=== PATIENT | female | born 1985 | race Caucasian/White ===

== ENCOUNTER 2019-11-22 10:35 | Outpatient (RCR) | payer OTHER, SELFPAY ==
[2019-11-22] MEDS: RHO(D) IMMUNE GLOBULIN 300 MCG SYRINGE IM (13:05)
== END 2020-02-20 23:59 | disposition home or self-care (01) ==
LOC: ANHLAB 10:35
PROVIDERS: PCP Nurse Practitioner Family; Visit Provider Obstetrics & Gynecology
DX: Z29.13 Encounter for prophylactic Rho(D) immune globulin (principal); O36.0990 Maternal care for other rhesus isoimmunization, unspecified trimester, not applicable or unspecified; Z3A.00 Weeks of gestation of pregnancy not specified
CPT/HCPCS: 36415; 85461; 90384; 96372; J2790

== ENCOUNTER 2020-01-06 12:00 | Emergency (ER) | payer OTHER, SELFPAY ==
[2020-01-06 12:08] VITALS: BP 151/77; PULSE 96; RESP 16; TEMP 37.3; O2SAT 99
--- NOTE | 2020-01-06 12:09 | ED.SKABFB ---
HPI - Skin/Abscess/Foreign Bdy General Chief complaint: Skin/Abscess/Foreign Body Stated complaint: possible spider bite Time Seen by Provider: 01/06/20 12:09 Source: patient and RN notes reviewed Mode of arrival: ambulatory Limitations: no limitations History of Present Illness HPI narrative: 34-year-old female who is 36 weeks , presents with concern for possible spider bite on her left torso. Reports several day history of small amount of redness and hardness that continues to get worse. Reports she had a small amount of white drainage from the area. Reports it is tender, warm. She denies fever, malaise, chills, sweats, nausea, vomiting. Patient reports no change in movement. MD complaint: abscess/boil Related Data Home Medications Medication Instructions Recorded Confirmed vit no.[id number] 800 tablet PO DAILY 01/06/20 01/06/20 [Classic ] Allergies Allergy/AdvReac Type Severity Reaction Status Date / Time hydrocortisone AdvReac Intermediate Rash Verified 01/06/20 12:13 Review of Systems Review of Systems: Narrative: CONSTITUTIONAL: Denies malaise, chills, sweats, or fever. CARDIOVASCULAR: Denies chest pain, palpitations, or edema. RESPIRATORY: Denies cough or dyspnea. GASTROINTESTINAL: Denies abdominal pain, nausea, vomiting, diarrhea SKIN: Reports red, hard, tender area on the left torso with small amount of white drainage MUSCULOSKELETAL: Denies myalgia. NEUROLOGIC: Denies headache. All systems reviewed & are unremarkable except as noted in HPI and below PMFSH Social History Social History Gender identity (if verbalized by the patient): Female Comments At time of signature, agree with nursing past medical, surgical, social and family history. There is no relevant family history pertinent to the presenting complaint Exam Narrative: Exam Narrative: GENERAL: Well-appearing, well-nourished, and in no acute distress. HEAD: Normocephalic, atraumatic. EYES: PERRLA, conjunctivae clear, and EOMI. ENT: Mucous membranes moist. Oropharynx without edema, erythema or lesions. NECK: Supple. No lymphadenopathy CHEST: Clear to auscultation. No respiratory distress. HEART: Regular rate and rhythm. SKIN: Warm, dry. Approximately 3 cm diameter area of erythema, induration with central white area, surrounded by approximately 7 cm area of mild erythema without induration. No fluctuation noted, no drainage noted NEURO: Alert and oriented x3. PSYCH: Normal mood and affect Course Course Emergency Course: Patient is aware of diagnosis, understands and agrees to treatment plan. Anticipatory guidance given. Patient agrees to follow-up as directed and is aware of reasons to seek care at the emergency department. Portions of this record may have been created with voice recognition software Vital Signs Vital signs: Vital Signs Temperature 99.2 F 01/06/20 12:08 Pulse Rate 96 01/06/20 12:08 Respiratory Rate 16 01/06/20 12:08 Blood Pressure 151/77 H 01/06/20 12:08 Pulse Oximetry 99 01/06/20 12:08 Temperature 99.2 F 01/06/20 12:08 Pulse Rate 96 01/06/20 12:08 Respiratory Rate 16 01/06/20 12:08 Blood Pressure 151/77 H 01/06/20 12:08 Pulse Oximetry 99 01/06/20 12:08 Reviewed. MDM - Skin/Abscess/Foreign Bdy MDM Narrative Medical decision making narrative: Does not appear at this time to be erythema multiforme, bullous, SJS, TEN; no evidence at this time to suggest RMSF, endocarditis or Lyme disease; patient looks well, nontoxic and is tolerating oral intake; no neurologic signs or symptoms; no headache, photophobia or neck pain; afebrile; appropriate for initial outpatient treatment; discussed the importance of follow-up, patient agrees; question, viral exanthema, contact dermatitis, allergic dermatitis, eczema, urticaria, cellulitis, insect bite, abscess. No soft palate or uvula edema, no tongue, lip edema or other mucosal involvement, no respiratory compr
== END 2020-01-06 12:29 | disposition home or self-care (01) ==
PROVIDERS: Emergency Provider Nurse Practitioner; PCP Nurse Practitioner Family
DX: O99.713 Diseases of the skin and subcutaneous tissue complicating pregnancy, third trimester (principal); Z3A.36 36 weeks gestation of pregnancy; L02.219 Cutaneous abscess of trunk, unspecified; O99.513 Diseases of the respiratory system complicating pregnancy, third trimester; J45.909 Unspecified asthma, uncomplicated; O99.891 Other specified diseases and conditions complicating pregnancy; G47.30 Sleep apnea, unspecified
CPT/HCPCS: 99213; G0463

== ENCOUNTER 2020-01-07 12:03 | Emergency (ER) | payer OTHER, SELFPAY ==
[2020-01-07 12:06] VITALS: BP 143/49; PULSE 114; RESP 14; TEMP 35.8; O2SAT 99
--- NOTE | 2020-01-07 13:50 | ED.WOUNDLAC ---
HPI - Wound/Laceration General Chief Complaint: Wound/Laceration Stated Complaint: infection on abdomen, 36 weeks Time Seen by Provider: 01/07/20 12:32 History of Present Illness HPI narrative: Patient is a 34-year-old female who presents ER with left abdominal wall wound. She reports 3 days ago she noted a little defect in the skin, 2 days ago began to feel painful, and then yesterday after being seen in urgent care and being prescribed Keflex it began to become red. She felt cold last night but also reports she is in the early phases of moving and is packed all her stuff and could not find a thermometer to tell she had a fever. She has not been feeling cold or feverish today. No drainage. She has been applying warm compresses to try to dry out any infection. Related Data Home Medications Medication Instructions Recorded Confirmed vit no.[id number] 800 tablet PO DAILY 01/06/20 01/06/20 [Classic ] Allergies Allergy/AdvReac Type Severity Reaction Status Date / Time hydrocortisone AdvReac Intermediate Rash Verified 01/07/20 12:21 Review of Systems Constitutional: Constitutional: Reports chills, Denies fever(s) and Denies weakness Gastrointestinal: Gastrointestinal: Denies abdominal pain, Denies nausea and Denies vomiting Integumentary/Breasts: Skin/Breast: Reports erythema Comments: Pain around the redness left abdominal wall PMFSH Past Medical History Medical History (Updated 01/07/20 @ 13:59 by Adi Montemayor MD) Anxiety Depression Hepatitis C Surgical History Surgical History (Updated 01/07/20 @ 13:57 by Adi Montemayor MD) No history of previous surgery Social History Social History (Updated 01/07/20 @ 13:57 by Adi Montemayor MD) Substance use type: heroin Gender identity (if verbalized by the patient): Female Exam Narrative: Exam Narrative: GENERAL: Well-appearing, well-nourished, and in no acute distress. HEAD: Normocephalic, atraumatic. ABDOMEN: Soft, nontender, gravid. EXTREMITIES: Normal range of motion. No edema. SKIN: Warm, dry, induration and redness to the left upper abdominal wall with an area of skin sloughing that may be the nidus of infection. NEURO: Alert and oriented x3. PSYCH: Normal mood and affect. Course Course Emergency Course: Incised and drained. Continue Keflex. Follow-up with OB. Vital Signs Vital signs: Vital Signs Temperature 96.5 F L 01/07/20 12:06 Pulse Rate 114 H 01/07/20 12:06 Respiratory Rate 14 01/07/20 12:06 Blood Pressure 143/49 H 01/07/20 12:06 Pulse Oximetry 99 01/07/20 12:06 Temperature 96.5 F L 01/07/20 12:06 Pulse Rate 114 H 01/07/20 12:06 Respiratory Rate 14 01/07/20 12:06 Blood Pressure 143/49 H 01/07/20 12:06 Pulse Oximetry 99 01/07/20 12:06 Procedures Abscess I/D abdomen: Date of Incision: 01/07/20 Time of Incision: 13:45 Side (if applicable): left Local Anesthetic: lidocaine 1% and with epi Amount of anesthesia used (mL): 5 Technique: incised with #11 blade Packing used?: iodoform I&D Results: Pus Discharge Plan Discharge Clinical Impression: Abscess Patient Disposition: Home, Self-Care Condition: Stable Instructions: Abscess (ED) Additional Instructions: Continue your home antibiotics. Return to the ER if you have fever over 100.4 ?F, you have increased redness or pain, or you have other concerns. Remove your packing in 2 days. Prescriptions: No Action Classic 28 mg iron- 800 mcg tablet 800 tablet PO DAILY RF: 0 cephalexin 500 mg capsule 500 mg PO QID 10 Days Qty: 40 RF: 0 Follow-up/Referrals: Kirit,Kasey Ko [employer]ATOR-[facility] [Primary Care Provider] - 1 Week
[2020-01-07 14:12] VITALS: BP 139/52; PULSE 92; RESP 14; TEMP 36.2; O2SAT 99
== END 2020-01-07 14:12 | disposition home or self-care (01) ==
PROVIDERS: Emergency Provider Emergency Medicine; PCP Nurse Practitioner Family
DX: O99.713 Diseases of the skin and subcutaneous tissue complicating pregnancy, third trimester (principal); L02.211 Cutaneous abscess of abdominal wall; Z86.19 Personal history of other infectious and parasitic diseases; Z3A.36 36 weeks gestation of pregnancy
CPT/HCPCS: 10061; 99282

== ENCOUNTER 2020-01-29 07:00 | Inpatient (IN) | payer OTHER, SELFPAY ==
[2020-01-29] VITALS (62 sets, daily range): BP systolic 98–141; BP diastolic 48–98; PULSE 65–107; RESP 16; TEMP 36.6–37.3; O2SAT 99–100; BMI 35.6
--- NOTE | 2020-01-29 06:46 | PM.IMHP ---
H&P: HPI History of Present Illness Date/Time: 01/29/20 06:46 Chief complaint: Pre admission Narrative: Heather Garcia is a 34 year old female whose last menstrual period was unknown, EDC of 02/05/2020 presents at term for induction of labor. She has a history of a shoulder dystocia with her last delivery however this baby does not appear to be is big. Review of Systems Review of Systems: All systems reviewed & are unremarkable except as noted in HPI and below PMFSH Past Medical History Medical History Anxiety Asthma Depression Hepatitis C Surgical History Surgical History Abdominal wall abscess Family History Family History Father Diabetes mellitus Hypertension Sleep apnea Other Diabetes mellitus Cancer Cerebrovascular accident Hypertension Social History Social History Smoking status: Former smoker Substance use: never Substance use type: heroin Living arrangements: with family Occupation/Education: unemployed Gender identity (if verbalized by the patient): Female Spiritual care concerns: No Meds Home Medications and Allergies Home Medications Medication Instructions Recorded Confirmed Type cephalexin 500 mg PO QID 10 Days #40 cap 01/06/20 01/18/20 Rx vit no.[id number] 800 tablet PO DAILY 01/06/20 01/18/20 History [Classic ] clindamycin HCl 300 mg capsule 300 mg PO Q8H 01/09/20 01/18/20 History Allergies Allergy/AdvReac Type Severity Reaction Status Date / Time tree nut Allergy Rash Verified 01/18/20 10:00 hydrocortisone AdvReac Intermediate Rash Verified 01/18/20 10:00 Exam Const: General: no acute distress Eyes: General: appearance normal, both eyes and all related structures Neck: Neck: supple and no JVD Thyroid: thyroid normal Resp: Effort & Inspection: normal respiratory effort Auscultation: clear to auscultation bilaterally Cardio: Rate: regular rate Rhythm: regular rhythm GI: Inspection: non-distended GI Palp: Yes Soft to palpation, No Tenderness to palpation present (GI) and No Guarding due to palpation present (GI) Auscultation: normal bowel sounds : General: Yes other ( FHTs were reassuring) Skin: General skin exam: no rashes or lesions noted Extrem: General: normal to inspection and no edema Psych: Mental Status: mental status grossly normal Affect: normal affect Assessment and Plan Additional Plan impression: Term Plan: Medical induction of labor. Spontaneous vaginal delivery is expected. Isaura has an epidural candidate
--- NOTE | 2020-01-29 07:19 | WPDOBADMIT ---
Obstetrics - Admit Note Admission Note: record reviewed. No pertinent additions to the history and/or any subsequent changes in the physical findings that are not consistent with the expected course of the were found. Additions to the history and/or subsequent changes in the physical findings follow. None. cx /-1 arom clear fhts reassuring
[2020-01-29 07:43] LABS: Basophils Absolute Auto 0.1 K/mm3 (0.0-0.1); Basophils Percent Auto 0.6 % (0.2-1.2); Eosinophils Absolute Auto 0.1 K/mm3 (0-0.3); Eosinophils Percent Auto 1.2 % (0-4.4); Hematocrit 36.6 % (37.0-47.0); Hemoglobin 11.9 g/dL (12.0-15.0); Immature Granulocyte Absolute 0.06 K/mm3 (0.00-0.031); Immature Granulocyte Percent A 0.7 % (0-0.5); Lymphocytes Absolute Auto 1.85 K/mm3 (0.9-3.2); Lymphocytes Percent Auto 21.3 % (18.3-44.2); Mean Corpuscular HGB Conc 32.5 g/dl (32-36); Mean Corpuscular Hemoglobin 26.5 pg (26-34); Mean Corpuscular Volume 81.5 fl (80-100); Mean Platelet Volume 10.3 fl (7.4-10.4); Monocytes Absolute Auto 0.6 K/mm3 (0.1-0.6); Monocytes Percent Auto 6.4 % (2.6-8.5); Neutrophils Absolute Auto 6.1 K/mm3 (1.3-6.7); Neutrophils Percent Auto 69.8 % (45.5-73.1); Platelet Count Result 162 k/mm3 (150-375); Red Blood Count 4.49 M/mm3 (4.2-5.4); Red Cell Distribution Width 15.7 % (11.5-14.5); White Blood Count 8.7 K/mm3 (4.5-10.0)
[2020-01-29] MEDS: OXYTOCIN 30 UNITS/NS 500 ML 30 UNITS/500 ML BAG IV CONT (07:50)
[2020-01-29] MEDS: LACTATED RINGERS 1,000 ML 125 ML IV CONT ×2 (07:50→10:09)
--- NOTE | 2020-01-29 08:04 | LDADM ---
This patient, Heather Garcia, was admitted to Labor/Delivery/Recovery 107 on 01/29/20 at 07:00. Plans for labor, pain management and were discussed with patient. Patient/family oriented to hospital policies and general routines including ID bracelet, bed and alarms, visiting hours, pain management, procedures, bathroom and other care routines, personal items, smoking policy, room service/diet and guest tray routines, security routines, and visiting hours. Patient/Family are encouraged to report perceived risks to care and to ask questions if they do not understand what they are told or what they should do. See OBIX for further documentation.
--- NOTE | 2020-01-29 11:35 | PM.OBPNVD ---
OB - PN: Subj Subjective Date/time seen: 01/29/20 11:35 cx 4 by rn exam fhts ok epidural in OB - PN: Obj Data Labs CBC & Chem 7: 01/29/20 07:31 Labs: Laboratory Results - last 24 hr 01/29/20 01/29/20 07:31 07:31 WBC 8.7 RBC 4.49 Hgb 11.9 L Hct 36.6 L MCV 81.5 MCH 26.5 MCHC 32.5 RDW 15.7 H Plt Count 162 MPV 10.3 Immature Gran % (Auto) 0.7 H Neut % (Auto) 69.8 Lymph % (Auto) 21.3 [place] % (Auto) 6.4 Eos % (Auto) 1.2 Baso % (Auto) 0.6 Lymph # (Auto) 1.85 [place] # (Auto) 0.6 Eos # (Auto) 0.1 Baso # (Auto) 0.1 Abs Immat Gran (auto) 0.06 H Absolute Neuts (auto) 6.1 Absolute Nucleated RBC 0.0 Nucleated RBC % 0.0 Blood Type O Negative Antibody Screen Negative OB - PN A/P Time Spent With Patient Time: Total time spent is greater than 50% in coordination of care (as documented) at patient's floor/unit and/or counseling patient:
[2020-01-29 12:08] LABS: Rapid Plasma Reagin Non-Reactive (NonReactive)
--- NOTE | 2020-01-29 14:52 | PM.OBPNVD ---
OB - PN: Subj Subjective Date/time seen: 01/29/20 14:52 cx 4.5 by rn exam ts aren leija [facility] OB - PN: Obj Data Labs CBC & Chem 7: 01/29/20 07:31 Labs: Laboratory Results - last 24 hr 01/29/20 01/29/20 01/29/20 07:31 07:31 07:31 WBC 8.7 RBC 4.49 Hgb 11.9 L Hct 36.6 L MCV 81.5 MCH 26.5 MCHC 32.5 RDW 15.7 H Plt Count 162 MPV 10.3 Immature Gran % (Auto) 0.7 H Neut % (Auto) 69.8 Lymph % (Auto) 21.3 [place] % (Auto) 6.4 Eos % (Auto) 1.2 Baso % (Auto) 0.6 Lymph # (Auto) 1.85 [place] # (Auto) 0.6 Eos # (Auto) 0.1 Baso # (Auto) 0.1 Abs Immat Gran (auto) 0.06 H Absolute Neuts (auto) 6.1 Absolute Nucleated RBC 0.0 Nucleated RBC % 0.0 RPR Non-reactive Blood Type O Negative Antibody Screen Negative OB - PN A/P Time Spent With Patient Time: Total time spent is greater than 50% in coordination of care (as documented) at patient's floor/unit and/or counseling patient:
--- NOTE | 2020-01-29 16:17 | PM.OBPRVD ---
OB - Delivery Note Procedure Delivery date: 01/29/20 Procedure: mil Intrapartal events: None Induction method: AROM Delivery augmentation: pitocin Delivery monitor: external FHT Route of delivery: Episiotomy description: None Laceration Description: None Specimen: No Quantitative Blood Loss (ml): 158 Anesthesia type: Epidural Disposition: floor Baby Date of : 01/29/20 Time of : 16:09 Weeks of gestation at delivery: 39 Infant gender: Male presentation: vertex position: Right Occiput Anterior Placenta delivery description: Spontaneous cord vessel description: 3 Vessels and Nuchal Cord score one minute: 9 score five minutes: 9
[2020-01-29] MEDS: OXYTOCIN 30 UNITS/NS 500 ML 30 UNITS/500 ML BAG 125 UNITS IV CONT (16:35)
[2020-01-29] MEDS: WITCH HAZEL 40 PADS 1 PAD TOPICAL (18:57)
[2020-01-29] MEDS: BENZOCAINE 20% AER SPR (*SP) 56 GM CAN 1 SPRAY TOPICAL (18:57)
--- NOTE | 2020-01-29 19:23 | OBPPTRN ---
Patient transferred to post room #285 via wheelchair. Support person present. Oriented to unit, room, information board, rooming in, admission packet and security measures. Patient verbalizes understanding. with patient.
[2020-01-30 04:44] LABS: Hematocrit 33.4 % (37.0-47.0); Hemoglobin 10.9 g/dL (12.0-15.0)
--- NOTE | 2020-01-30 06:55 | P.PNOB_ITS ---
OB - PN: Subj Subjective Date/time seen: 01/30/20 06:55 Patient comments: no complaints and pain well controlled baby status: doing well OB - PN: Obj Data Labs CBC & Chem 7: 01/30/20 03:48 Labs: Laboratory Results - last 24 hr 01/29/20 01/29/20 01/29/20 07:31 07:31 07:31 WBC 8.7 RBC 4.49 Hgb 11.9 L Hct 36.6 L MCV 81.5 MCH 26.5 MCHC 32.5 RDW 15.7 H Plt Count 162 MPV 10.3 Immature Gran % (Auto) 0.7 H Neut % (Auto) 69.8 Lymph % (Auto) 21.3 [place] % (Auto) 6.4 Eos % (Auto) 1.2 Baso % (Auto) 0.6 Lymph # (Auto) 1.85 [place] # (Auto) 0.6 Eos # (Auto) 0.1 Baso # (Auto) 0.1 Abs Immat Gran (auto) 0.06 H Absolute Neuts (auto) 6.1 Absolute Nucleated RBC 0.0 Nucleated RBC % 0.0 RPR Non-reactive Blood Type O Negative Antibody Screen Negative 01/30/20 03:48 WBC RBC Hgb 10.9 L Hct 33.4 L MCV MCH MCHC RDW Plt Count MPV Immature Gran % (Auto) Neut % (Auto) Lymph % (Auto) [place] % (Auto) Eos % (Auto) Baso % (Auto) Lymph # (Auto) [place] # (Auto) Eos # (Auto) Baso # (Auto) Abs Immat Gran (auto) Absolute Neuts (auto) Absolute Nucleated RBC Nucleated RBC % RPR Blood Type Antibody Screen OB - PN A/P Plan day: 1 Plan: routine care Time Spent With Patient Time: Total time spent is greater than 50% in coordination of care (as documented) at patient's floor/unit and/or counseling patient: Time with patient: less than 15 minutes Review of Systems Review of Systems: All systems reviewed & are unremarkable except as noted in HPI and below Exam Const: General: no acute distress Eyes: General: appearance normal, both eyes and all related structures Neck: Neck: supple and no JVD Thyroid: thyroid normal Resp: Effort & Inspection: normal respiratory effort Auscultation: clear to auscultation bilaterally Cardio: Rate: regular rate Rhythm: regular rhythm GI: Inspection: non-distended GI Palp: Yes Soft to palpation, No Tenderness to palpation present (GI) and No Guarding due to palpation present (GI) Auscultation: normal bowel sounds : General: Yes bladder normal to palpation External Female Exam: normal external appearance Speculum Exam - Vagina: normal vaginal discharge and No vaginal bleeding Speculum Exam - Cervix: nontender Bimanual exam- vagina & uterus: bladder normal to palpation and No Cervical tenderness present OB/external & speculum: No vaginal bleeding Skin: General skin exam: no rashes or lesions noted Extrem: General: normal to inspection and no edema Psych: Mental Status: mental status grossly normal Affect: normal affect
--- NOTE | 2020-01-30 06:55 | PM.DS ---
DS: Admitting Diagnosis Admitting Diagnosis Admitting Diagnosis: IOL Term intrauterine DS: Summary Time Spent with Patient Time attestation: Total time spent providing and/or coordinating discharge services: The patient was admitted and underwent spontaneous vaginal delivery after successful induction of labor. She remained afebrile. There was up, voiding without difficulty, eating, ambulating, and generally without complaints. Exam Const: General: no acute distress Eyes: General: appearance normal, both eyes and all related structures Neck: Neck: supple and no JVD Thyroid: thyroid normal Resp: Effort & Inspection: normal respiratory effort Auscultation: clear to auscultation bilaterally Cardio: Rate: regular rate Rhythm: regular rhythm GI: Inspection: non-distended GI Palp: Yes Soft to palpation, No Tenderness to palpation present (GI) and No Guarding due to palpation present (GI) Auscultation: normal bowel sounds : General: Yes bladder normal to palpation External Female Exam: normal external appearance Speculum Exam - Vagina: normal vaginal discharge and No vaginal bleeding Speculum Exam - Cervix: nontender Bimanual exam- vagina & uterus: bladder normal to palpation and No Cervical tenderness present OB/external & speculum: No vaginal bleeding Skin: General skin exam: no rashes or lesions noted Extrem: General: normal to inspection and no edema Psych: Mental Status: mental status grossly normal Affect: normal affect DS: Data Data Completed and Pending Labs on day of discharge: Labs from last 24 hours 01/30/20 01/29/20 01/29/20 03:48 07:31 07:31 WBC RBC Hgb 10.9 L Hct 33.4 L MCV MCH MCHC RDW Plt Count MPV Immature Gran % (Auto) Neut % (Auto) Lymph % (Auto) [place] % (Auto) Eos % (Auto) Baso % (Auto) Lymph # (Auto) [place] # (Auto) Eos # (Auto) Baso # (Auto) Abs Immat Gran (auto) Absolute Neuts (auto) Absolute Nucleated RBC Nucleated RBC % RPR Non-reactive Blood Type O Negative Antibody Screen Negative 01/29/20 07:31 WBC 8.7 RBC 4.49 Hgb 11.9 L Hct 36.6 L MCV 81.5 MCH 26.5 MCHC 32.5 RDW 15.7 H Plt Count 162 MPV 10.3 Immature Gran % (Auto) 0.7 H Neut % (Auto) 69.8 Lymph % (Auto) 21.3 [place] % (Auto) 6.4 Eos % (Auto) 1.2 Baso % (Auto) 0.6 Lymph # (Auto) 1.85 [place] # (Auto) 0.6 Eos # (Auto) 0.1 Baso # (Auto) 0.1 Abs Immat Gran (auto) 0.06 H Absolute Neuts (auto) 6.1 Absolute Nucleated RBC 0.0 Nucleated RBC % 0.0 RPR Blood Type Antibody Screen Discharge Plan Discharge Attending physician on discharge: Jh Horn Discharging Clinician: Jh Horn Patient Disposition: Home, Self-Care Activity: may shower, no straining and pelvic rest Diet: heart healthy Wound Care Instructions: follow printed instructions Patient Instructions: Antibiotic Form Stand Alone Forms: General Discharge Information Follow-up/Referrals: Jh Horn MD [Physician] - Discharge Medications: Continued Classic 28 mg iron- 800 mcg tablet 800 tablet PO DAILY RF: 0 cephalexin 500 mg capsule 500 mg PO QID 10 Days Qty: 40 RF: 0 clindamycin HCl 300 mg capsule 300 mg PO Q8H RF: 0 Date of admission: 01/29/20 07:00 Primary Care Provider: KiritKasey Admitting Provider: Jh Horn Attending physician on admission: Jh Horn Condition: Stable
[2020-01-30 07:40] VITALS: BP 132/87; PULSE 78; RESP 18; TEMP 36.9; O2SAT 100
[2020-01-30] MEDS: IBUPROFEN 600 MG TABLET PO (08:42)
[2020-01-30] MEDS: DOCUSATE SODIUM 100 MG CAPSULE PO (08:42)
[2020-01-30] MEDS: MULTIVIT/MIN/PREN/FOL AC/IRON TABLET 1 TAB PO (08:42)
--- NOTE | 2020-01-30 09:52 | PC.NURSE ---
Consulted with patient, reviewed infant feeding cues, frequencies, duration of feedings, feeding elimination flow sheet, and signs of adequate intake. Instructed mother to call out for RN assistance for next feeding. Instructed feeding should be initiated three hours from start of last feeding or if feeding cues are noted before. Mother voiced understanding of information shared.
--- NOTE | 2020-01-30 11:05 | WPDANLDPN2 ---
Anes-Prog Note L&D Date/Time: 01/30/20 11:05 Comfortable throughout: labor and delivery Neuraxial method: epidural Epidural/Spinal procedure site: clean & non-tender Neuro status: Neuro function grossly intact. Cardiovascular status: normal Respiratory status: normal Airway patency: baseline Mental status: baseline Post-Op hydration status: normal Vital Signs: Last Vital Signs Temp 36.9 C 01/30/20 07:40 Pulse 78 01/30/20 07:40 Resp 18 01/30/20 07:40 BP 132/87 01/30/20 07:40 Pulse Ox 100 01/30/20 07:40 Pain score (VAS): 0 I/O: Intake & Output 01/29/20 01/30/20 01/30/20 23:59 07:59 15:59 Output Total 163 Balance -163 Post-procedural complaints: none Patient feedback: Patient satisfied with anesthetic care.
--- NOTE | 2020-01-30 15:14 | PC.NURSE ---
Consulted with patient, demonstrated stimulation techniques to wake for feeding. Assisted with infant to breast. Reviewed positioning/alignment, holding breast and asymmetrical latch on. Infant was able to latch correctly. nursed eagerly, with steady draws and frequent swallowing noted. Reviewed signs of a correct latch, effective nursing and suck swallow ratio. was able to maintain latch without discomfort to mother. Nipple care reviewed. Instructed mother to call out for RN assistance if she is unable to latch for feeding or she has discomfort with nursing. Instructed feeding should be initiated three hours from start of last feeding or if feeding cues are noted before. Mother voiced understanding of information shared.
[2020-01-31 10:56] VITALS: BP 137/73; PULSE 79; RESP 20; TEMP 37.2; O2SAT 100
== END 2020-01-30 17:10 | disposition home or self-care (01) | DRG 560 ==
LOC: ANHLDR 07:04 → ANHOB2 19:54
PROVIDERS: Admitting Provider Obstetrics & Gynecology; PCP Nurse Practitioner Family; Visit Provider Obstetrics & Gynecology
DX: O99.892 Other specified diseases and conditions complicating childbirth (principal); Z37.0 Single live birth; Z3A.39 39 weeks gestation of pregnancy; O69.81X0 Labor and delivery complicated by cord around neck, without compression, not applicable or unspecified; Z87.59 Personal history of other complications of pregnancy, childbirth and the puerperium; Z86.19 Personal history of other infectious and parasitic diseases; O99.52 Diseases of the respiratory system complicating childbirth; J45.909 Unspecified asthma, uncomplicated; O99.344 Other mental disorders complicating childbirth; F41.8 Other specified anxiety disorders
CPT/HCPCS: 36415; 85014; 85018; 85025; 86592; 86850; 86900; 86901; A9270; J2590; J2795; J7120

== ENCOUNTER 2020-03-12 02:32 | Outpatient (CLI) | payer OTHER, SELFPAY ==
[2020-03-12 18:12] LABS: SARS-CoV-2 RNA PCR Negative
== END 2020-03-12 02:33 | disposition home or self-care (01) ==
LOC: ANHCOVIDDT 02:32
PROVIDERS: PCP Nurse Practitioner Family; Visit Provider Obstetrics & Gynecology
DX: Z01.812 Encounter for preprocedural laboratory examination (principal); Z20.822 Contact with and (suspected) exposure to COVID-19
CPT/HCPCS: C9803; U0003; U0005

== ENCOUNTER 2020-03-15 02:10 | Day surgery (SDC) | payer OTHER, SELFPAY ==
[2020-03-07 10:55] VITALS: BMI 32.9
--- NOTE | 2020-03-12 14:24 | PM.IMHP ---
H&P: HPI History of Present Illness Date/Time: 03/12/20 14:24 Chief Complaint: sterilization Narrative: Heather Garcia is a 34 year old female who is admitted for laparoscopic tubal ligation. She desires permanent and irreversible sterilization. She has signed the [facility] tubal ligation she had. She was offered alternative and reversible forms. Failure rate of 04/999 was reviewed. Risks and benefits including but not exclusive of , aspiration pneumonia, bleeding, transfusion, perforation injury to bowel, bladder, ureters, or other internal organs with need for open laparotomy and repair reviewed. She voiced good understanding. She had all questions answered. She asked to proceed Review of Systems Review of Systems: All systems reviewed & are unremarkable except as noted in HPI and below PMFSH Past Medical History Medical History Anxiety Asthma Depression Hepatitis C Surgical History Surgical History Abdominal wall abscess Family History Family History Father Diabetes mellitus Hypertension Sleep apnea Other Diabetes mellitus Cancer Cerebrovascular accident Hypertension Social History Social History Smoking packs per day: 0.5 Smoking cigarettes per day: 10.0 Years smoked: 8 Smoking pack-years: 4.00 Smoking status: Former smoker Tobacco type: cigarettes Substance use: former Substance use type: heroin Last use: Gender identity (if verbalized by the patient): Female Spiritual care concerns: No Meds Home Medications and Allergies Home Medications Medication Instructions Recorded Confirmed Type Classic 800 tablet PO DAILY 01/06/20 03/07/20 History Allergies Allergy/AdvReac Type Severity Reaction Status Date / Time tree nut Allergy Rash Verified 03/07/20 10:38 hydrocortisone AdvReac Intermediate Rash Verified 03/07/20 10:38 Exam Const: General: no acute distress Eyes: General: appearance normal, both eyes and all related structures Neck: Neck: supple and no JVD Thyroid: thyroid normal Resp: Effort & Inspection: normal respiratory effort Auscultation: clear to auscultation bilaterally Cardio: Rate: regular rate Rhythm: regular rhythm GI: Inspection: non-distended GI Palp: Yes Soft to palpation, No Tenderness to palpation present (GI) and No Guarding due to palpation present (GI) Auscultation: normal bowel sounds : General: Yes bladder normal to palpation External Female Exam: normal external appearance Speculum Exam - Vagina: normal vaginal discharge and No vaginal bleeding Speculum Exam - Cervix: nontender Bimanual exam- vagina & uterus: bladder normal to palpation and No Cervical tenderness present OB/external & speculum: No vaginal bleeding Skin: General skin exam: no rashes or lesions noted Extrem: General: normal to inspection and no edema Psych: Mental Status: mental status grossly normal Affect: normal affect Assessment and Plan Additional Plan impression: Multipara desires permanent sterilization Plan: Laparoscopic bilateral tubal ligation
--- NOTE | 2020-03-13 15:59 | WPDANESEPPF ---
Anes - Initial Pre Proc Eval Procedure: Operation Date: 03/15/20 11:30 Proposed Procedures p Laparoscopic Bilateral Tubal Sterilization With Fallopian Rings - Jh Horn MD Date/Time: 03/13/20 15:59 Surgeon: Jh Horn MD Pre Op Diagnosis: Desires Sterilization Patient Data Age: 34 Gender: F Height: 1.8 m Weight: 107.05 kg Allergies Allergy/AdvReac Type Severity Reaction Status Date / Time tree nut Allergy Rash Verified 03/15/20 09:43 hydrocortisone AdvReac Intermediate Rash Verified 03/15/20 09:43 Home Medications Medication Instructions Recorded Confirmed Type Classic 800 tablet PO DAILY 01/06/20 03/15/20 History hydrocodone-acetaminophen [Ballantine] 1 tablet PO Q4H PRN #30 tablet 03/15/20 Rx Patient hx anesthesia problems: none Family hx anesthesia problems: none PMFSH Past Medical History Medical History (Updated 03/15/20 @ 06:39 by Jh Horn MD) Anxiety Asthma Depression Hepatitis C 2005 - no treatment needed HINA (obstructive sleep apnea) Surgical History Surgical History Abdominal wall abscess Family History Family History Father Diabetes mellitus Hypertension Sleep apnea Other Diabetes mellitus Cancer Cerebrovascular accident Hypertension Social History Social History Smoking packs per day: 0.5 Smoking cigarettes per day: 10.0 Years smoked: 8 Smoking pack-years: 4.00 Smoking status: Former smoker Tobacco type: cigarettes Substance use: former Substance use type: heroin Last use: Living arrangements: with family Gender identity (if verbalized by the patient): Female Spiritual care concerns: No Anes - Eval Final PreProcedure Day of Procedure 03/13/20 15:59 Patient weight: obese Heart: regular rate and rhythm Lungs: clear to auscultation and normal air movement Airway: Mallampati scale class II Neurological: alert and oriented Last oral intake: >/= 8 hours ASA classification: III Emergent: no Anesthetic plan: proceed Anesthesia type and monitoring: general ETT and standard monitoring Informed Consent: The patient's anesthetic plan and its attendant risks and benefits were discussed with the patient/family/POA. Questions were solicited and answers provided to the satisfaction of the patient/family/POA.
[2020-03-15] VITALS (8 sets, daily range): BP systolic 109–128; BP diastolic 54–79; PULSE 59–82; RESP 15–18; TEMP 36.3–36.9; O2SAT 95–100; BMI 32.4
--- NOTE | 2020-03-15 06:38 | WPDHPUPDATE1 ---
History and Physical Update Update Date/Time: 03/15/20 06:38 History and Physical has been reviewed, including an updated exam of the patient. There are NO changes in the patient's condition. Risks, benefits, and alternatives have been discussed and questions answered. Patient agrees to proceed with procedure.
[2020-03-15] MEDS: LACTATED RINGERS 1,000 ML 30 ML IV CONT (10:18)
[2020-03-15] MEDS: ACETAMINOPHEN 500 MG TABLET 1000 MG PO (10:18)
[2020-03-15] MEDS: KETOROLAC 15 MG/ML VIAL (*BKC) IV PUSH (10:19)
[2020-03-15] MEDS: LIDOCAINE HCL 1% LOCAL INJ 10 ML VIAL 4 ML INFILTRATE (11:26)
--- NOTE | 2020-03-15 11:42 | P.OP_ITS ---
Procedure Note - Detailed Date of procedure: 03/15/20 Pre-op diagnosis: Desires Sterilization Surgeon: Jh Horn MD Postop diagnosis: Desires sterilization Procedure: Laparoscopic bilateral tubal ligation via silastic bands Anesthesia: General endotracheal EBL: 5cc Findings: Normal-appearing ovaries tubes and uterus Complications: None Description of procedure: The patient was prepped and draped in the normal sterile fashion placed in the dorsal lithotomy position. Under excellent gener al endotracheal anesthesia weighted speculum placed in posterior fornix of vagina. Anterior lip of the cervix grasped with single-tooth and the Cesar's cannula inserted and attached to the single-tooth tenaculum. Bladder was drained of clear urine. The weighted speculum was removed. The gloves were changed. An infraumbilical umbilical incision was made after 2cc of 1% xylocaine anesthesia had been placed in the infraumbilical area Veress needle passed in the abdomen. The abdomen filled with CO2 gas [id number]. The 5mm trocar advanced in the abdomen. The downside visualized no injury seen P. The patient placed in Trendelenburg and 2cc of 1% xylocaine anesthesia placed in the suprapubic area. An 8mm trocar was advanced in the abdomen under direct visualization assuring no injury. The right fallopian tube was grasped in its midportion a good knuckle of tube free tied with excellent blanching. Left fallopian tube was grasped in the midportion and a good knuckle of tube formed with the ring and blanching was seen. A small area of bleeding was seen and this was cauterized with bipolar cautery. There were no other abnormalities. The lower site removed after gas removed from the abdomen. The upper site removed. The incisions closed with 4 Monocryl glue the instruments removed from the vagina. The the patient went to recovery in satisfactory condition. All sponge, needle, instrument counts were correct. There were immediate complications
--- NOTE | 2020-03-15 11:54 | SUR.OPER ---
Bilateral fallopian rings [facility] lot [id number], EXP 2024-08-23
[2020-03-15] MEDS: fentaNYL CITRATE INJ (*CRX) 100 MCG/2 ML VIAL 25 MCG IV PUSH ×8 (12:08→12:26)
[2020-03-15] MEDS: ONDANSETRON INJ 4 MG/2 ML VIAL IV PUSH (12:57)
== END 2020-03-15 13:48 | disposition home or self-care (01) ==
PROVIDERS: PCP Nurse Practitioner Family; Visit Provider Obstetrics & Gynecology
PROC: (CPT 58671; principal; 2020-03-15 11:30)
DX: Z30.2 Encounter for sterilization (principal); F41.9 Anxiety disorder, unspecified; J45.909 Unspecified asthma, uncomplicated; F32.9 Major depressive disorder, single episode, unspecified; B19.20 Unspecified viral hepatitis C without hepatic coma; Z87.891 Personal history of nicotine dependence; E66.9 Obesity, unspecified; Z68.32 Body mass index [BMI] 32.0-32.9, adult
CPT/HCPCS: 58671; A4264; A9270; J0330; J1100; J1200; J1885; J2250; J2405; J2704; J3010; J7120

== ENCOUNTER 2020-09-24 11:06 | Emergency (ER) | payer OTHER, SELFPAY ==
--- NOTE | ~2020-09-24 | XR_ITS ---
EXAMINATION: XR chest 1V portable INDICATION: Cough and sore throat TECHNIQUE: Portable AP chest at 1231 hours COMPARISON: None available FINDINGS: The lungs are free of acute opacities. There is no pleural effusion or pneumothorax. The ca rdiomediastinal silhouette is normal. The visualized bones and soft tissues are unremarkable. IMPRESSION: 1. No acute cardiopulmonary abnormality. Reviewed, dictated and finalized at location B.
[2020-09-24 11:15] VITALS: BP 131/69; PULSE 90; RESP 16; TEMP 36.5; O2SAT 100
[2020-09-24 11:39] LABS: Basophils Percent Auto 0.7 % (0.2-1.2); Eosinophils Absolute Auto 0.1 K/mm3 (0-0.3); Eosinophils Percent Auto 1.8 % (0-4.4); Hematocrit 44.6 % (37.0-47.0); Hemoglobin 14.3 g/dL (12.0-15.0); Immature Granulocyte Absolute 0.01 K/mm3 (0.00-0.031); Immature Granulocyte Percent A 0.2 % (0-0.5); Lymphocytes Absolute Auto 1.44 K/mm3 (0.9-3.2); Lymphocytes Percent Auto 25.4 % (18.3-44.2); Mean Corpuscular HGB Conc 32.1 g/dl (32-36); Mean Corpuscular Hemoglobin 26.6 pg (26-34); Mean Corpuscular Volume 82.9 fl (80-100); Mean Platelet Volume 10.5 fl (7.4-10.4); Monocytes Absolute Auto 0.4 K/mm3 (0.1-0.6); Monocytes Percent Auto 6.5 % (2.6-8.5); Neutrophils Absolute Auto 3.7 K/mm3 (1.3-6.7); Neutrophils Percent Auto 65.4 % (45.5-73.1); Platelet Count Result 223 k/mm3 (150-375); Red Blood Count 5.38 M/mm3 (4.2-5.4); Red Cell Distribution Width 15.9 % (11.5-14.5); White Blood Count 5.7 K/mm3 (4.5-10.0)
[2020-09-24 11:52] LABS: Carbon Dioxide 22 mmol/L (22-30); Chloride 107 mmol/L (98-107); Sodium 141 mmol/L (137-145)
[2020-09-24 11:53] LABS: Alanine Aminotransferase 18 U/L (4-35); Albumin Level 4.5 g/dL (3.5-5.1); Alkaline Phosphatase 75 U/L (38-126); Anion Gap 12 mmol/L (8-16); Aspartate Amino Transferase 24 U/L (14-36); Bilirubin,Total 0.9 mg/dL (0.2-1.3); Blood Urea Nitrogen 10 mg/dL (7-17); Calcium 9.3 mg/dL (8.4-10.2); Estimated CRCL calculation 124 ml/min; Estimated Glomerular Filt Rate > 60; Glucose 94 mg/dL (65-110)
[2020-09-24 11:59] VITALS: BP 133/86; PULSE 90; RESP 18; TEMP 36.8; O2SAT 100
[2020-09-24 12:39] LABS: Add Urine Microscopic? YES; Appearance Urine Clear (Clear); Bilirubin Urine 1+ (Negative); Blood Urine 2+ (Negative); Color Urine Amber (Yellow); Glucose Urine UA Negative (Negative); Ketones Urine 2+ mg/dL (Negative); Leukocyte Esterase Ur Negative LEU/UL (Negative); Mucus Urine Rare /lpf; Nitrate Urine Negative (Negative); Protein Urine 2+ mg/dL (Negative); RBC Urine 0-2 /hpf (0-2); Squamous Epithelial Cell Urine Rare /hpf (Few)
[2020-09-24 12:48] LABS: Specific Grav Ur 1.032 (1.001-1.035)
--- NOTE | 2020-09-24 13:37 | ED.URI ---
HPI - URI/Sore Throat General Chief Complaint: Upper Respiratory Infection Stated Complaint: ST Time Seen by Provider: 09/24/20 12:18 Source: patient Mode of arrival: ambulatory Limitations: no limitations History of Present Illness HPI Narrative: Patient 35 years old white female presented to the ED with feeling sick for the last 7 days. Associated with sore throat, raspy voice, coughing, not feeling well, feeling dehydrated, cramps in the legs and feet, nausea and fatigue. Patient is fully vaccinated for COVID-19, her son exposed to his teacher 2 to 3 weeks ago which was tested positive for Covid infection, the son is asymptomatic.. Patient is a status post a sleeve surgery 2 months ago. Patient denies any shortness of breath or chest pain Related Data Home Medications Medication Instructions Recorded Confirmed No Home Medications 09/24/20 09/24/20 Allergies Allergy/AdvReac Type Severity Reaction Status Date / Time tree nut Allergy Rash Verified 09/24/20 11:56 hydrocortisone AdvReac Intermediate Rash Verified 09/24/20 11:56 Review of Systems Review of Systems: CONSTITUTIONAL: Denies fever, chills, or sweats. EYES: Denies visual changes, redness, or discharge. ENT: Denies rhinorrhea, congestion, sore throat, or otalgia. CARDIOVASCULAR: Denies chest pain, palpitations, or edema. RESPIRATORY: Denies cough or dyspnea. GASTROINTESTINAL: Denies abdominal pain, nausea, vomiting, or diarrhea. GENITOURINARY: Denies dysuria or hematuria. SKIN: Denies rash or itching. MUSCULOSKELETAL: Denies back pain, joint pain, or myalgia. NEUROLOGIC: Denies headache, numbness, or weakness. PSYCHIATRIC: Denies anxiety or depression. [facility] Past Medical History Medical History Anxiety Asthma Depression Hepatitis C 2006 - no treatment needed HINA (obstructive sleep apnea) Surgical History Surgical History Abdominal wall abscess Family History Family History Father Diabetes mellitus Hypertension Sleep apnea Other Diabetes mellitus Cancer Cerebrovascular accident Hypertension Social History Social History Smoking packs per day: 0.5 Smoking cigarettes per day: 10.0 Years smoked: 8 Smoking pack-years: 4.00 Smoking status: Former smoker Tobacco type: cigarettes Substance use: former Substance use type: heroin Last use: Gender identity (if verbalized by the patient): Female Spiritual care concerns: No Exam Narrative: General appearance: Well-developed, well-nourished, raspy voice, no family member at the bedside Skin: Normal color Head: Normocephalic, nontraumatic Eyes: Clear conjunctiva ENT: Oropharynx normal, ears normal, nose normal Neck: Supple, nontender Chest and respiratory: Airway patent, no respiratory distress, no accessory muscle use Heart: Regular rate/rhythm Abdomen: Soft, nontender, no organomegaly, quiet bowel sounds Vascular: Normal peripheral pulses, normal capillary refill. Musculoskeletal: Normal range of motion, nontender back Neurologic: Alert and oriented ?3, [employer]PRESENTATIVE is normal as tested, no gross motor deficit Course Course Emergency Course: Stable Vital Signs Vital signs: Vital Signs Temperature 36.5 C 09/24/20 11:15 Pulse Rate 90 09/24/20 11:15 Respiratory Rate 16 09/24/20 11:15 Blood Pressure 131/69 09/24/20 11:15 Pulse Oximetry 100 09/24/20 11:15 Temperature 36.8 C 09/24/20 11:59 Pulse Rate 90 09/24/20 11:59 Respiratory Rate 18 09/24/20 11:5
[2020-09-24 14:20] VITALS: BP 133/76; PULSE 88; RESP 16; TEMP 36.6; O2SAT 100
[2020-09-25 15:32] LABS: SARS-CoV-2 RNA PCR Negative
== END 2020-09-24 14:21 | disposition home or self-care (01) ==
PROVIDERS: Emergency Medicine; Emergency Provider Emergency Medicine; PCP Nurse Practitioner Family
DX: B34.9 Viral infection, unspecified (principal); Z20.822 Contact with and (suspected) exposure to COVID-19; F41.9 Anxiety disorder, unspecified; F32.9 Major depressive disorder, single episode, unspecified; F17.210 Nicotine dependence, cigarettes, uncomplicated
CPT/HCPCS: 36415; 71045; 80053; 81001; 81025; 85025; 99283; C9803; U0003; U0005

== ENCOUNTER 2020-11-27 17:52 | Emergency (ER) | payer OTHER, SELFPAY ==
[2020-11-27 18:01] VITALS: BP 127/84; PULSE 69; RESP 16; TEMP 37.3; O2SAT 98
--- NOTE | 2020-11-27 18:15 | ED.EAR ---
HPI - Ear Problem General Chief complaint: Ear Stated complaint: right ear clogged Time Seen by Provider: 11/27/20 18:19 Source: patient and RN notes reviewed Mode of arrival: ambulatory Limitations: no limitations History of Present Illness HPI Narrative: 35-year-old female presents concern for decreased hearing in the right ear, reports possible right ear clogged. She denies any history of problems with earwax impaction. She denies pain, drainage from the ear. She reports she tried to use peroxide with no relief. She denies rhinorrhea, nasal congestion, sore throat, headache, fever. MD Complaint: decreased hearing Related Data Allergies Allergy/AdvReac Type Severity Reaction Status Date / Time tree nut Allergy Rash Verified 09/24/20 11:56 hydrocortisone AdvReac Intermediate Rash Verified 09/24/20 11:56 Review of Systems Review of Systems: CONSTITUTIONAL: Denies malaise, chills, sweats, or fever. EYES: Denies visual changes, redness, or discharge. ENT: Denies rhinorrhea, congestion, sinus pain, otalgia or sore throat. Reports decreased hearing and ear canal itching CARDIOVASCULAR: Denies chest pain, palpitations, or edema. RESPIRATORY: Denies cough or dyspnea. SKIN: Denies rash or itching. All systems reviewed & are unremarkable except as noted in HPI and below PMFSH Past Medical History Medical History Anxiety Asthma Depression Hepatitis C 2005 - no treatment needed HINA (obstructive sleep apnea) Surgical History Surgical History Abdominal wall abscess Family History Family History Father Diabetes mellitus Hypertension Sleep apnea Other Diabetes mellitus Cancer Cerebrovascular accident Hypertension Social History Social History Smoking packs per day: 0.5 Smoking cigarettes per day: 10.0 Years smoked: 8 Smoking pack-years: 4.00 Smoking status: Former smoker Tobacco type: cigarettes Substance use: former Substance use type: heroin Last use: Gender identity (if verbalized by the patient): Female Spiritual care concerns: No Comments At time of signature, agree with nursing past medical, surgical, social and family history. There is no relevant family history pertinent to the presenting complaint Exam Narrative: GENERAL: Well-appearing, well-nourished, and in no acute distress. HEAD: Normocephalic, atraumatic. EYES: PERRLA, sclera clear, and EOMI. No nystagmus. ENT: Nares clear. Mucous membranes moist. Left TM pearly avalos with sharp light reflex, right TM slightly erythematous with dull light reflex; no tragal tenderness, right auditory canal erythematous and edematous without drainage. Oropharynx without erythema or lesions. Tonsils not enlarged and without exudate. NECK: Supple. CHEST: No respiratory distress. Speaks in full sentences. HEART: Regular rate and rhythm. SKIN: Warm, dry, no visible rash. NEURO: Alert and oriented x3. No focal deficits. Cranial nerves II through XII grossly intact PSYCH: Normal mood and affect Course Course Emergency Course: Patient is aware of diagnosis, understands and agrees to treatment plan. Anticipatory guidance given. Patient agrees to follow-up as directed and is aware of reasons to seek care at the emergency department. Portions of this record may have been created with voice recognition software Vital Signs Vital signs: Vital Signs Temperature 99.2 F 11/27/20 18:01 Pulse Rate 69 11/27/20 18:01 Respiratory Rate 16 11/27/20 18:01 Blood Pressure 127/84 11/27/20 18:01 Pulse Oximetry 98 11/27/20 18:01 Temperature 99.2 F 11/27/20 18:01 Pulse Rate 69 11/27/20 18:01 Respiratory Rate 16 11/27/20 18:01 Blood Pressure 127/84 11/27/20 18:01 Pulse Oximetry 98 11/27/20 18:01 Reviewed. M
== END 2020-11-27 18:32 | disposition home or self-care (01) ==
PROVIDERS: Emergency Provider Nurse Practitioner; PCP Nurse Practitioner Family
DX: H60.501 Unspecified acute noninfective otitis externa, right ear (principal); H69.81 Other specified disorders of Eustachian tube, right ear; Z87.891 Personal history of nicotine dependence; J45.909 Unspecified asthma, uncomplicated; G47.33 Obstructive sleep apnea (adult) (pediatric); Z86.19 Personal history of other infectious and parasitic diseases
CPT/HCPCS: 99213; G0463

== ENCOUNTER 2021-02-20 16:36 | Emergency (ER) | payer OTHER, SELFPAY ==
--- NOTE | 2021-02-20 16:39 | ED.URI ---
HPI - URI/Sore Throat General Chief Complaint: Ear Stated Complaint: Sore throat, cough Time Seen by Provider: 02/20/21 16:39 Source: patient and RN notes reviewed History of Present Illness HPI Narrative: Patient is a 35-year-old female presents to urgent care with complaints of sore throat, cough, sinus pressure and bilateral ear pain. Patient states that she had a COVID test approximately 1 week ago which was negative. States that her symptoms started right after her PCR COVID test. Patient states that her kids father was positive for COVID the day after [place] however her kids never had symptoms. Patient would be considered to be out of quarantine at this time . Patient has had the COVID-vaccine. Denies any fevers, nausea or vomiting. Patient has been taking cough medication and Tylenol for her symptoms. No other acute complaints. No acute distress noted. Patient aware of plan of care. Some parts of this dictation were generated by voice recognition software and may contain typographical and/or grammatical inaccuracies. Related Data Allergies Allergy/AdvReac Type Severity Reaction Status Date / Time tree nut Allergy Rash Verified 02/20/21 16:45 hydrocortisone AdvReac Intermediate Rash Verified 02/20/21 16:45 Review of Systems Review of Systems: CONSTITUTIONAL: Denies fever, chills, or sweats. EYES: Denies visual changes, redness, or discharge. ENT: Reports of sinus congestion, sore throat and bilateral otalgia CARDIOVASCULAR: Denies chest pain, palpitations, or edema. RESPIRATORY: Reports a mild nonproductive cough GASTROINTESTINAL: Denies abdominal pain, nausea, vomiting, or diarrhea. GENITOURINARY: Denies dysuria or hematuria. SKIN: Denies rash or itching. MUSCULOSKELETAL: Denies back pain, joint pain, or myalgia. NEUROLOGIC: Denies headache, numbness, or weakness. All other systems reviewed are negative, except as documented in HPI. [facility] Past Medical History Medical History Anxiety Asthma Depression Hepatitis C 2005 - no treatment needed HINA (obstructive sleep apnea) Surgical History Surgical History Abdominal wall abscess Family History Family History Father Diabetes mellitus Hypertension Sleep apnea Other Diabetes mellitus Cancer Cerebrovascular accident Hypertension Social History Social History Smoking packs per day: 0.5 Smoking cigarettes per day: 10.0 Years smoked: 8 Smoking pack-years: 4.00 Smoking status: Former smoker Tobacco type: cigarettes Substance use: former Substance use type: heroin Last use: Gender identity (if verbalized by the patient): Female Spiritual care concerns: No Comments At the time of my signature, I reviewed and agree with the nursing past medical, surgical, social, and family history. There is no relevant family history pertinent to the patient complaint. Exam Narrative: GENERAL: This is a well-nourished, well-developed patient, in no apparent distress. HEAD: normocephalic, atraumatic. EYES: PERRL. Sclera clear/white. Vision is grossly intact. EARS: External ears normal, auditory canals clear and without drainage, TMs normal without perforation. Hearing grossly intact. NOSE: External nose normal with no obvious nasal discharge, nares without redness, clear rhinorrhea. THROAT: Mucous membranes moist, posterior pharynx clear. Mild postnasal drainage NECK: Neck supple, non-tender without lymphadenopathy CARDIOVASCULAR: Regular rate and rhythm without murmurs, gallops, or rubs. RESPIRATORY: Clear to auscultation. Breath sounds equal bilaterally. No wheezes, rales, or rhonchi. SKIN: warm, intact with no suspicious lesions or rash, good texture and turgor. NEURO: awake, alert, and oriented to person, place and time. There
[2021-02-20 16:41] VITALS: BP 138/81; PULSE 81; RESP 16; TEMP 36.7; O2SAT 100
== END 2021-02-20 17:02 | disposition home or self-care (01) ==
PROVIDERS: Emergency Provider Nurse Practitioner Family; PCP Nurse Practitioner Family
DX: J02.9 Acute pharyngitis, unspecified (principal); Z87.891 Personal history of nicotine dependence; J45.909 Unspecified asthma, uncomplicated; G47.33 Obstructive sleep apnea (adult) (pediatric); Z86.19 Personal history of other infectious and parasitic diseases
CPT/HCPCS: 87081; 87880; 99213; G0463

== ENCOUNTER 2021-03-12 11:45 | Outpatient (CLI) | payer OTHER, SELFPAY ==
--- NOTE | ~2021-03-12 | MM_ITS ---
EXAMINATION: MM diagnostic nara BI w mane HISTORY: Palpable lump in the upper outer quadrant of the left breast TECHNIQUE: Craniocaudal, mediolateral, and mediolateral oblique 3-D tomosynthesis images of the breas ts were performed and synthetic 2-D images were generated. CAD analysis was submitted and interpreted . COMPARISON: None, baseline BREAST PARENCHYMAL COMPOSITION: There are scattered areas of fibroglandular density. FINDINGS: There is no evidence of suspicious mass, calcification, or architectural distortion in eit her breast to suggest malignancy. No mammographic correlate is identified for the reported palpable a bnormality of concern in the left breast. IMPRESSION: 1. No mammographic correlate for the reported palpable abnormality of the left breast. 2. Targeted left breast ultrasound in the area of the palpable abnormality is recommended. BI-RADS Category 0: Incomplete: Needs additional imaging evaluation. Reviewed, dictated and finalized at location A. OBIOLOGY LABORATORY MANAGER IMPRESSION: 1. No mammographic correlate for the reported palpable abnormality of the left breast. 2. Targeted left breast ultrasound in the area of the palpable abnormality is r ecommended. BI-RADS Category 0: Incomplete: Needs additional imaging evaluation.
== END 2021-03-12 11:46 | disposition home or self-care (01) ==
PROVIDERS: PCP Nurse Practitioner Family; Visit Provider Nurse Practitioner Family
DX: R92.8 Other abnormal and inconclusive findings on diagnostic imaging of breast (principal)
CPT/HCPCS: 77062; 77066; G0279

== ENCOUNTER 2021-03-24 13:44 | Outpatient (CLI) | payer OTHER, SELFPAY ==
--- NOTE | ~2021-03-24 | US_ITS ---
US breast LT limited INDICATION: Palpable left breast lump TECHNIQUE: Dedicated Limited left breast ultrasound COMPARISON: Mammogram dated 03/12/2021 FINDINGS: The left breast is composed of normal heterogeneous echotexture without focal solid or cyst ic mass. IMPRESSION: 1: Normal left breast ultrasound. BI-RADS CATEGORY 1 - NEGATIVE Reviewed, dictated and finalized at location A. ET LAYER HELPER
== END 2021-03-24 13:45 | disposition home or self-care (01) ==
LOC: ANHIMG 13:48
PROVIDERS: PCP Nurse Practitioner Family; Visit Provider Nurse Practitioner Family
DX: R92.8 Other abnormal and inconclusive findings on diagnostic imaging of breast (principal)
CPT/HCPCS: 76642

== ENCOUNTER 2021-04-13 09:51 | Observation (INO) | payer OTHER, SELFPAY ==
[2021-04-13] VITALS (11 sets, daily range): BP systolic 107–124; BP diastolic 56–71; PULSE 62–88; RESP 16–25; TEMP 36.3–37.2; O2SAT 98–100; BMI 21.7
--- NOTE | ~2021-04-13 | CT_ITS ---
EXAMINATION: CT soft tissue neck w con EXAM DATE: 04/13/2021 11:10 INDICATION: Possible left peritonsillar abscess. TECHNIQUE: Spiral CT of the neck was performed following intravenous injection of 75 mL Omnipaque 350 . Axial, coronal and sagittal images were reviewed. The dose-length product (DLP) for this examinat ion was 479.54 mGy-cm. The exposure was tailored according to patient size (auto mA exposure control ), and iterative reconstruction (ASIR) was used as additional dose reduction technique. There is no prior study for comparison. FINDINGS: Left half of epiglottis appears severely edematous up to about 12 mm in thickness. The left vallecula and piriform sinus have low density along with the left aryepiglottic fold, probably all o f these structures are also edematous. There is edema in the left parapharyngeal fat. There is swelli ng of the left lingual and palatine tonsils. There is swelling of the left submandibular region, fat planes. No definite rim-enhancing drainable abscess is identified. No retropharyngeal thickening. No jugular venous thrombosis. Lung apices are clear. Cervical spine un remarkable. Submandibular, parotid, thyroid gland is unremarkable. Small amount of left maxillary sin us mucoperiosteal thickening, no air-fluid levels. Mastoid air cells are well aerated. IMPRESSION: Severely edematous left tonsils and left pharyngeal and laryngeal structures including th e epiglottis, aryepiglottic folds, sinuses. No drainable abscess suspected. 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 Patient was given IV antibi otics and anti-inflammatory medicine already and reportedly being admitted. Reviewed, dictated and finalized at location A. AND HARD OF HEARING TEACHER IMPRESSION: Severely edematous left tonsils and left pharyngeal and laryngeal s tructures including the epiglottis, aryepiglottic folds, sinuses. No drainable abscess suspected. 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 Shakeel burnette was given IV antibiotics and anti-inflammatory medicine already and reported ly being admitted.
--- NOTE | 2021-04-13 10:24 | ED.DENTAL ---
HPI - Dental/Oral General Chief complaint: Dental/Oral Stated complaint: throat swelling, able swallow secretions Time Seen by Provider: 04/13/21 10:19 Source: patient Mode of arrival: ambulatory Limitations: no limitations History of Present Illness HPI Narrative: Patient is a status post left lower wisdom tooth extraction 4 days ago 24 hours later patient started having some swelling at the left throat with difficulty swallowing. Currently patient on ibuprofen, Tylenol and amoxicillin. Patient denies trouble breathing. Patient drove herself to the emergency room. Related Data Home Medications Medication Instructions Recorded Confirmed amoxicillin 04/13/21 dextroamphetamine-amphetamine 04/13/21 lamotrigine 04/13/21 Allergies Allergy/AdvReac Type Severity Reaction Status Date / Time tree nut Allergy Rash Verified 04/13/21 10:15 hydrocortisone AdvReac Intermediate Rash Verified 04/13/21 10:15 Review of Systems Review of Systems: CONSTITUTIONAL: Denies fever, chills, or sweats. EYES: Denies visual changes, redness, or discharge. ENT: Denies difficulty breathing, reports difficulty swallowing with pain. CARDIOVASCULAR: Denies chest pain, palpitations, or edema. RESPIRATORY: Denies cough or dyspnea. GASTROINTESTINAL: Denies abdominal pain, nausea, vomiting, or diarrhea. SKIN: Denies rash or itching. MUSCULOSKELETAL: Denies back pain, joint pain, or myalgia. NEUROLOGIC: Denies headache, numbness, or weakness. PSYCHIATRIC: Denies anxiety or depression. [facility] Past Medical History Medical History Anxiety Asthma Depression Hepatitis C 2005 - no treatment needed HINA (obstructive sleep apnea) Surgical History Surgical History Abdominal wall abscess Family History Family History Father Diabetes mellitus Hypertension Sleep apnea Other Diabetes mellitus Cancer Cerebrovascular accident Hypertension Social History Social History Smoking packs per day: 0.5 Smoking cigarettes per day: 10.0 Years smoked: 8 Smoking pack-years: 4.00 Smoking status: Former smoker Tobacco type: cigarettes Substance use: former Substance use type: heroin Last use: Gender identity (if verbalized by the patient): Female Spiritual care concerns: No Exam Narrative: General appearance: Well-developed, well-nourished Skin: Normal color Head: Normocephalic, nontraumatic Eyes: Clear conjunctiva ENT: Oropharynx exam showed large left tonsillar enlargement with erythema, patient unable to open her mouth enough for full examination because of pain Neck: Supple, diffuse tenderness and swelling submental and left submandibular area Chest and respiratory: Airway patent, no respiratory distress, no accessory muscle use Heart: Regular rate/rhythm Abdomen: Soft, nontender, no organomegaly, quiet bowel sounds Vascular: Normal peripheral pulses, normal capillary refill. Musculoskeletal: Normal range of motion, nontender back Neurologic: Alert and oriented ?3, [employer] is normal as tested, no gross motor deficit Course Course Emergency Course: Stable Consultations Consultation #1: Dr. Pruitt Accepted patient admission to hospitalist Date: 04/13/21 Time: 12:27 Consultation #2: Currently patient is a stable, feeling much better. Patient received 10 mg of Decadron IV and 3 g of Unasyn IV. Date: 04/13/21 Time: 12:30 Vital Signs Vital signs: Vital Signs Temperature 37.2 C 04/13/21 10:00 Pulse Rate 77 04/13/21 1
[2021-04-13] MEDS: diphenhydrAMINE HCl INJ 50 MG/ML VIAL 25 MG IV PUSH (10:31)
[2021-04-13 10:38] LABS: Basophils Percent Auto 0.4 % (0.2-1.2); Eosinophils Absolute Auto 0.1 K/mm3 (0-0.3); Eosinophils Percent Auto 0.7 % (0-4.4); Hematocrit 37.4 % (37.0-47.0); Hemoglobin 12.1 g/dL (12.0-15.0); Immature Granulocyte Absolute 0.04 K/mm3 (0.00-0.031); Immature Granulocyte Percent A 0.4 % (0-0.5); Lymphocytes Absolute Auto 1.16 K/mm3 (0.9-3.2); Lymphocytes Percent Auto 10.2 % (18.3-44.2); Mean Corpuscular HGB Conc 32.4 g/dl (32-36); Mean Corpuscular Hemoglobin 27.5 pg (26-34); Mean Platelet Volume 9.7 fl (7.4-10.4); Monocytes Absolute Auto 0.7 K/mm3 (0.1-0.6); Monocytes Percent Auto 6.3 % (2.6-8.5); Neutrophils Absolute Auto 9.3 K/mm3 (1.3-6.7); Platelet Count Result 199 k/mm3 (150-375); Red Cell Distribution Width 13.1 % (11.5-14.5); White Blood Count 11.3 K/mm3 (4.5-10.0)
[2021-04-13] MEDS: AMPICILLIN SULB 3 GM/NS 100 ML 3 GM/100 ML VIAL IVPB ×3 (10:41→23:01)
[2021-04-13 10:47] LABS: Alanine Aminotransferase 17 U/L (4-35); Albumin Level 3.6 g/dL (3.5-5.1); Alkaline Phosphatase 72 U/L (38-126); Anion Gap 6 mmol/L (8-16); Aspartate Amino Transferase 24 U/L (14-36); Bilirubin,Total 0.5 mg/dL (0.2-1.3); Blood Urea Nitrogen 14 mg/dL (7-17); Calcium 8.2 mg/dL (8.4-10.2); Carbon Dioxide 27 mmol/L (22-30); Chloride 105 mmol/L (98-107); Estimated CRCL calculation 122 ml/min; Estimated Glomerular Filt Rate > 60; Glucose 88 mg/dL (65-110); Potassium 4.2 mmol/L (3.4-5.0); Sodium 138 mmol/L (137-145)
--- NOTE | 2021-04-13 13:51 | WPDCN ---
HPI Data of Consult Date/Time: 04/13/21 13:51 Primary Care Provider: Kasey Beth, FEED PREPARATION OPERATOR-BC Consult Narrative Narrative: Heather Garcia is a 35 year old female with recently removed lower tooth two days later swelling scope reveal swollen tonsil vallevula swollen epiglottis cortds normal tx with steroids andunasyn PMFSH Past Medical History Medical History Anxiety Asthma Depression Hepatitis C 2005 - no treatment needed HINA (obstructive sleep apnea) Surgical History Surgical History Abdominal wall abscess Family History Family History Father Diabetes mellitus Hypertension Sleep apnea Other Diabetes mellitus Cancer Cerebrovascular accident Hypertension Social History Social History Smoking packs per day: 0.5 Smoking cigarettes per day: 10.0 Years smoked: 8 Smoking pack-years: 4.00 Smoking status: Former smoker Tobacco type: cigarettes Substance use: former Substance use type: heroin Last use: Gender identity (if verbalized by the patient): Female Spiritual care concerns: No Meds Home Medications and Allergies Home Medications Medication Instructions Recorded Confirmed Type methylprednisolone [Medrol (Smith)] See Rx Instructions .ROUTE 02/20/21 Rx .COMPLEX #21 each amoxicillin 04/13/21 History dextroamphetamine-amphetamine 04/13/21 History lamotrigine 04/13/21 History Allergies Allergy/AdvReac Type Severity Reaction Status Date / Time tree nut Allergy Rash Verified 04/13/21 10:15 hydrocortisone AdvReac Intermediate Rash Verified 04/13/21 10:15 Vital Signs Vital Signs - 24 hr 04/13/21 10:00 04/13/21 10:30 04/13/21 11:22 Temperature 37.2 C Pulse Rate 77 77 70 Respiratory Rate 16 19 Blood Pressure 124/71 Pulse Oximetry 99 100 100 04/13/21 12:01 04/13/21 12:30 Temperature Pulse Rate 73 72 Respiratory Rate 23 H 23 H Blood Pressure Pulse Oximetry 100 99 Results Labs CBC & Chem 7: 04/13/21 10:28 04/13/21 10:28 Labs: Short CBC 04/13/21 Range/Units 10:28 WBC 11.3 H (4.5-10.0) K/mm3 Hgb 12.1 (12.0-15.0) g/dL Hct 37.4 (37.0-47.0) % Plt Count 199 (150-375) k/mm3 BMP 04/13/21 10:28 Sodium 138 Potassium 4.2 Chloride 105 Carbon Dioxide 27 BUN 14 Creatinine 0.60 L Glucose 88 Calcium 8.2 L Liver Function 04/13/21 Range/Units 10:28 Total Bilirubin 0.5 (0.2-1.3) mg/dL AST 24 (14-36) U/L ALT 17 (4-35) U/L Alkaline Phosphatase 72 (38-126) U/L Albumin 3.6 (3.5-5.1) g/dL
--- NOTE | 2021-04-13 15:34 | PC.NURSE ---
Patient care report called to NILDA Emanuel on . All questions answered at this time and patient transported by ED meter/relay technician to assigned inpatient room.
--- NOTE | 2021-04-13 17:34 | ADMGEN ---
This patient, Heather Garcia, was admitted to Medical Room 251-. Patient/family oriented to hospital policies and general routines including ID bracelet, bed and alarms, visiting hours, pain management, procedures, bathroom and other care routines, personal items, smoking policy, room service/diet, and visiting hours. Information on how to activate the Rapid Response Team has been discussed. Patient/Family are encouraged to report perceived risks to care and to ask questions if they do not understand what they are told or what they should do.
[2021-04-13] MEDS: SODIUM CHLORIDE 0.9% IV 1,000 ML 125 ML IV CONT (17:38)
[2021-04-13] MEDS: DEXAMETHASONE SOD PHOS INJ 4 MG/ML VIAL IV PUSH ×2 (18:06→23:01)
[2021-04-13] MEDS: KETOROLAC 30 MG/ML VIAL (*BKC) IV PUSH (20:39)
--- NOTE | 2021-04-13 22:26 | PM.IMHP ---
H&P: HPI History of Present Illness Date/Time: 04/13/21 22:26 Chief Complaint: Throat swelling and pain Narrative: H&P/transfer summary 35-year-old female with past medical history of obesity and obstructive sleep apnea status post gastric sleeve July 2020, and wisdom tooth extraction April 10 who presented to the ER due to throat swelling and pain. The patient reported that is about 24 hours after her surgery she began having swelling in the left side of her throat and difficulty swallowing. She has been able to keep down tiny sips of fluid. She has had occasional episodes of choking on fluids and having to spit them back out. She has been feeling warm but denies any fevers. She has been taking her postop amoxicillin as directed. She has been taking ibuprofen and Tylenol at home for pain with minimal improvement in pain. She was evaluated in the ED today and had a CT of the soft tissues of the neck. CT demonstrated severely edematous left tonsil left pharyngeal and laryngeal structures including epiglottis, aryepiglottic fold and sinuses with no drainable abscess identified. I reviewed the patient's CT there were areas of severe narrowing and points at which I could not see patent airway for 1 or [address] scan. ENT has been contacted in the ER and recommended antibiotics and steroids. The patient has received 2 doses of Unasyn since admission and 1 dose of Decadron 10 mg 1 dose of Decadron 4 mg. Despite these interventions patient has not had any improvement in her swelling. I was notified of the patient's admission by nursing staff after patient arrived on the floor. On my review of the chart and after evaluation of the patient and her description of at times managing secretions high felt the patient needed to be monitored in a higher level of care. I contacted the care professionals and review the patient's case he felt the patient would be better served by being transferred to tertiary care where anesthesia and or ENT her on site to assistive the patient's airway were to deteriorate. He contacted [facility] transfer center and the patient has been excepted to [facility] under to care of Dr. Gupta internal Medicine with ENT consult. This planning care was discussed with the patient to agreed and consented for transfer. Review of Systems Review of Systems: 12 systems were reviewed with pertinent positives and negatives per HPI. Except as documented in the HPI, all other systems were reviewed and are negative. [facility] Past Medical History Medical History (Updated 04/13/21 @ 22:41 by Almaz Warren DO) Anxiety Asthma Depression Hepatitis C 2005 - no treatment needed Heroin abuse In remission since 2017 HINA (obstructive sleep apnea) Resolve since gastric sleeve and subsequent almost 100 lb weight loss Surgical History Surgical History (Updated 04/13/21 @ 22:43 by Almaz Warren DO) Abdominal wall abscess I&D 12/2019 History of tubal ligation (03/12/20) Status post sleeve gastrectomy (07/2020) Family History Family History Father Sleep apnea Diabetes mellitus Hypertension Cerebrovascular accident Other Cancer Mother Hypertension Social History Social History (Updated 04/13/21 @ 22:46 by Almaz Warren DO) Social History: She is single and lives at home with her 4 sons ages 17, 12, 3 and [id number]. 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 She smoked a half a pack of cigarettes per day for 12 years but switched to vaping cigarettes for the last several years. She last used vaping on the right before her oral surgery. She rarely drinks alcohol and only in small amounts. She does have a distant history of heroin abuse but quit using in 2016. Smoking packs per day: 0.5 Smoking cigarettes per day: 10.0 Years smoked: 8 Smoking pack-years: 4.00 Smoking status: Former smoker Armin
--- NOTE | 2021-04-13 22:37 | PC.NURSE ---
Addendum entered by Santiago Amaro RN 04/14/21 01:10: Pt transferred at 0000, [facility] [place] notified pt enroute. Original Note: Pt transferring to [id number] for higher level of care. Report called to Sarah [phone]. Facility will be notified when EMS arrives.
[2021-04-13 23:10] LABS: SARS-CoV-2 RNA PCR Negative
== END 2021-04-14 | disposition short-term general hospital (02) ==
LOC: ANHED 12:27 → ANH2MED 04-15 11:00
PROVIDERS: Admitting Provider Chiropractor; Emergency Provider Emergency Medicine; PCP Nurse Practitioner Family; Visit Provider Internal Medicine
DX: J38.4 Edema of larynx (principal); J39.2 Other diseases of pharynx; J05.10 Acute epiglottitis without obstruction; Z98.890 Other specified postprocedural states; J45.909 Unspecified asthma, uncomplicated; G47.33 Obstructive sleep apnea (adult) (pediatric); F41.8 Other specified anxiety disorders; Z86.19 Personal history of other infectious and parasitic diseases; Z87.891 Personal history of nicotine dependence; Z98.84 Bariatric surgery status; Z20.822 Contact with and (suspected) exposure to COVID-19
CPT/HCPCS: 36415; 70491; 80053; 85025; 96365; 96366; 96367; 96375; 96376; 99285; C9803; G0378; J0131; J0295; J1100; J1200; J1885; J7030; Q9967; U0003; U0005

== ENCOUNTER 2021-05-02 10:48 | Outpatient (CLI) | payer OTHER, SELFPAY ==
--- NOTE | ~2021-05-02 | CT_ITS ---
EXAMINATION: CT soft tissue neck w con DATE: 05/02/2021 11:10 INDICATION: Cellulitis and abscess of mouth. TECHNIQUE: Computed tomography (CT) of the neck was performed with 75 mL Omnipaque-350 intravenous co ntrast. Automated exposure control and iterative reconstruction technique were employed. The dose-vinicio gth product was 477.51 mGy-cm. COMPARISON: Neck CT 04/13/2021 FINDINGS: There are no pathologically enlarged lymph nodes. The cervical carotid arteries are normal. The pharynx and larynx are normal. There is mild mucosal thickening in the paranasal sinuses. The ma stoid air cells are normal. There is mild cervical and thoracic spondylosis. IMPRESSION: 1. No findings of infection or abscess. Reviewed, dictated and finalized at location A.
== END 2021-05-02 10:49 | disposition home or self-care (01) ==
LOC: ANHIMG 10:52
PROVIDERS: PCP Nurse Practitioner Family; Visit Provider Otolaryngology
DX: K12.2 Cellulitis and abscess of mouth (principal)
CPT/HCPCS: 70491; Q9967

== ENCOUNTER 2021-05-16 14:20 | Emergency (ER) | payer OTHER, SELFPAY ==
[2021-05-16 14:26] VITALS: BP 128/80; PULSE 75; RESP 16; TEMP 36.4; O2SAT 100
[2021-05-16 14:42] LABS: Basophils Absolute Auto 0.1 K/mm3 (0.0-0.1); Basophils Percent Auto 0.8 % (0.2-1.2); Eosinophils Absolute Auto 0.1 K/mm3 (0-0.3); Eosinophils Percent Auto 0.6 % (0-4.4); Hematocrit 41.3 % (37.0-47.0); Hemoglobin 13.2 g/dL (12.0-15.0); Immature Granulocyte Absolute 0.02 K/mm3 (0.00-0.031); Immature Granulocyte Percent A 0.2 % (0-0.5); Lymphocytes Absolute Auto 2.17 K/mm3 (0.9-3.2); Lymphocytes Percent Auto 25.9 % (18.3-44.2); Mean Corpuscular Hemoglobin 27.2 pg (26-34); Mean Platelet Volume 9.2 fl (7.4-10.4); Monocytes Absolute Auto 0.5 K/mm3 (0.1-0.6); Monocytes Percent Auto 5.4 % (2.6-8.5); Neutrophils Absolute Auto 5.6 K/mm3 (1.3-6.7); Neutrophils Percent Auto 67.1 % (45.5-73.1); Platelet Count Result 241 k/mm3 (150-375); Red Blood Count 4.86 M/mm3 (4.2-5.4); Red Cell Distribution Width 14.4 % (11.5-14.5); White Blood Count 8.4 K/mm3 (4.5-10.0)
[2021-05-16 14:53] LABS: Alanine Aminotransferase 9 U/L (4-35); Albumin Level 4.5 g/dL (3.5-5.1); Alkaline Phosphatase 60 U/L (38-126); Anion Gap 8 mmol/L (8-16); Aspartate Amino Transferase 23 U/L (14-36); Bilirubin,Total 0.9 mg/dL (0.2-1.3); Blood Urea Nitrogen 13 mg/dL (7-17); Carbon Dioxide 30 mmol/L (22-30); Chloride 102 mmol/L (98-107); Estimated CRCL calculation 98 ml/min; Estimated Glomerular Filt Rate > 60; Glucose 90 mg/dL (65-110); Lipase 64 U/L (23-300); Potassium 4.4 mmol/L (3.4-5.0); Sodium 140 mmol/L (137-145)
== END 2021-05-16 15:38 | disposition left against medical advice (07) ==
PROVIDERS: Emergency Provider Emergency Medicine; PCP Nurse Practitioner Family
DX: R10.12 Left upper quadrant pain (principal)
CPT/HCPCS: 36415; 80053; 83690; 85025; 99199

== ENCOUNTER 2022-10-07 09:06 | Outpatient (CLI) | payer OTHER, SELFPAY ==
[2022-10-07 09:34] LABS: Hematocrit 39.5 % (37.0-47.0); Hemoglobin 12.3 g/dL (12.0-15.0)
== END 2022-10-07 09:07 | disposition home or self-care (01) ==
LOC: ANHSURGERY 09:11
PROVIDERS: Visit Provider Obstetrics & Gynecology
DX: Z01.818 Encounter for other preprocedural examination (principal); N83.209 Unspecified ovarian cyst, unspecified side; N92.6 Irregular menstruation, unspecified
CPT/HCPCS: 36415; 85014; 85018; 86850; 86900; 86901

== ENCOUNTER 2022-10-09 01:39 | Day surgery (SDC) | payer OTHER, SELFPAY ==
[2022-10-06 13:42] VITALS: BMI 20.9
--- NOTE | 2022-10-06 13:51 | PC.NURSE ---
Report to the Outpatient Waiting Room, entrance under the green pavilion located off [facility], at time 11:15 on date 10/09/22. Planned Procedure Time: 1:15. Time changes happen often and if your time is changed the preop area will call you the afternoon before. - You and your visitor will be asked to self-screen and do not enter if you have any COVID symptoms. - A mask is optional within the hospital at this time. Patients may have clear liquids (water, carbonated beverages, clear teas, apple juice) until 3 hours prior to surgery with a maximum of 20 ounces. - No food from midnight until time of surgery Take the following medications with a SIP of water the morning of surgery: NONE DO NOT STOP ANY OF YOUR OTHER PRESCRIPTION MEDICATIONS PRIOR TO SURGERY ?EXCEPT THE FOLLOWING Medications to discontinue per physician: VITAMINS/SUPPLEMENTS Date to take last dose: NO MORE UNTIL AFTER SURGERY Please no make-up, nail pitcairn islander, hairspray, perfume, deodorant, or body powder the day of surgery. No jewelry (including any body piercings) or valuables the day of surgery, leave them at home. Please take a shower or bath the night before, or the morning of, surgery with an antibacterial soap. Wear comfortable, loose fitting clothing. - Jewelry must be removed prior to entering the operating room. Rings and piercings that are not removed may be cut off. - The hospital will not accept responsibility for valuables. - Please leave all valuables, including medications, at home the day of surgery. If you are going home after surgery, a licensed drivers' cash clerk must drive you home. - NO public transportation without another adult if you receive anesthesia. - We recommend that an adult stay with you for 24 hours following discharge. - We also recommend that you do not drive, make important decision, drink alcoholic beverages, or take any drugs that were not prescribed by your health care provider for at least 24 hours after your discharge time. Follow any additional instructions given to you from your surgeon. If you or anyone in your household have experienced Covid symptoms in the past week, please notify your surgeon or the nurse liaison at the phone number below for possible testing. Telephone instructions given to PT - ABHISHEK NEVAREZ and asked if any additional questions and then verbalized understanding. Patient advised to call surgeon office or pre surgery nurse liaison [phone] if any additional questions.
--- NOTE | 2022-10-07 07:10 | PM.IMHP ---
H&P: HPI History of Present Illness Date/Time: 10/07/22 07:10 Chief Complaint: Pelvic pain/vaginal bleeding Narrative: This is a 37-year-old female admitted for laparoscopic ovarian cystectomy possible left oophorectomy hysteroscopy/dilatation curettage/the nerve ablation. The secondary to pelvic pain irregular heavy bleeding. [facility] Past Medical History Medical History Anxiety Asthma Depression Hepatitis C 2005 - no treatment needed Heroin abuse In remission since 2017 HINA (obstructive sleep apnea) Resolve since gastric sleeve and subsequent almost 100 lb weight loss Surgical History Surgical History Abdominal wall abscess I&D 12/2019 History of tubal ligation (03/12/20) Status post sleeve gastrectomy (07/2020) Family History Family History Father Sleep apnea Diabetes mellitus Hypertension Cerebrovascular accident Other Cancer Mother Hypertension Father Hypertension Cerebrovascular accident Family history of diabetes mellitus in first degree relative Grandparent Family history of malignant neoplasm Family history of malignant neoplasm of brain Mother Family history of colonic diverticulitis Social History Social History Social History: She is single and lives at home with her 4 sons ages 17, 12, 3 and [id number]. 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 She smoked a half a pack of cigarettes per day for 12 years but switched to vaping cigarettes for the last several years. She last used vaping on the right before her oral surgery. She rarely drinks alcohol and only in small amounts. She does have a distant history of heroin abuse but quit using in 2017. Smoking packs per day: 0.5 Smoking cigarettes per day: 10.0 Years smoked: 10 Smoking pack-years: 5.00 Smoking status: Former smoker Tobacco type: cigarettes Smokeless tobacco user: other Smoking end date: 02/15/17 Additional smoking assessment comments: pt stopped vaping at time of oral surgery Alcohol intake: current Alcohol use details: VERY RARE Substance use: former Substance use type: does not use Last use: 2017 Living arrangements: with family Additional living arrangements comments: CHILDREN Occupation/Education: unemployed Gender identity (if verbalized by the patient): Female Spiritual care concerns: No Meds Home Medications and Allergies Home Medications Medication Instructions Recorded Confirmed Type Lactobacillus 1 cap PO DAILY 10/06/22 10/06/22 History acidophilus-Bifidobac.animalis 2.5 billion cell capsule (Daily Probiotic) multivitamin 1 tablet PO DAILY 10/06/22 10/06/22 History Allergies Allergy/AdvReac Type Severity Reaction Status Date / Time tree nut Allergy Rash Verified 10/06/22 13:41 Exam Const: General: cooperative, healthy appearing and comfortable Nutritional Appearance: average body habitus Orientation/consciousness: oriented to person and oriented to time HENMT: Head: normal to inspection Resp: Effort & Inspection: normal respiratory effort Cardio: Rate: regular rate Rhythm: regular rhythm Heart sounds: S1 normal heart sound present and S2 normal heart sound present GI: Inspection: normal to inspection : External Female Exam: normal external appearance Speculum Exam - Vagina: normal appearance of the vagina Speculum Exam - Cervix: normal appearance of the cervix Bimanual exam- vagina & uterus: non-tender Bimanual Exam- Adnexa, other: tender on the left Assessment and Plan Assessment and plan (1) Left ovarian cyst: Code(s): N83.202 - Unspecified ovarian cyst, left side Status: Acute (2) Excessive vaginal bleeding: Code(s): N93.9 - Abnormal uterin
--- NOTE | 2022-10-08 12:03 | WPDANESEPPF ---
Anes - Initial Pre Proc Eval Procedure: Operation Date: 10/09/22 13:15 Proposed Procedures p Laparoscopic Left Ovarian Cystectomy, - Jh Ortiz MD s Hysteroscopy Dilation and Curettage, Breanna Endometrial Ablation - Jh Ortiz MD Date/Time: 10/08/22 12:03 Surgeon: Jh Ortiz MD Pre Op Diagnosis: pelvic pain, left ovarian cyst, irr. bleeding Patient Data Age: 37 Gender: F Height: 1.8 m Weight: 68.05 kg Allergies Allergy/AdvReac Type Severity Reaction Status Date / Time tree nut Allergy Rash Verified 10/09/22 12:05 Home Medications Medication Instructions Recorded Confirmed Type Lactobacillus 1 cap PO DAILY 10/06/22 10/06/22 History acidophilus-Bifidobac.animalis 2.5 billion cell capsule (Daily Probiotic) multivitamin 1 tablet PO DAILY 10/06/22 10/06/22 History hydrocodone 5 mg-acetaminophen 325 1 tablet PO Q4H PRN pain #20 tabs 10/09/22 Rx mg tablet Patient hx anesthesia problems: none Family hx anesthesia problems: none Results Review: All pre-operative results and documents have been reviewed as part of the pre-operative evaluation. [facility] Past Medical History Medical History (Updated 10/08/22 @ 12:03 by Francisco Zurita DO) Anxiety Asthma Bradycardia Depression Hepatitis C 2005 - no treatment needed Heroin abuse In remission since 2016 HINA (obstructive sleep apnea) Resolve since gastric sleeve and subsequent almost 100 lb weight loss Surgical History Surgical History Abdominal wall abscess I&D 12/2019 History of tubal ligation (03/12/20) Status post sleeve gastrectomy (07/2020) Family History Family History Father Sleep apnea Diabetes mellitus Hypertension Cerebrovascular accident Other Cancer Mother Hypertension Father Hypertension Cerebrovascular accident Family history of diabetes mellitus in first degree relative Grandparent Family history of malignant neoplasm Family history of malignant neoplasm of brain Mother Family history of colonic diverticulitis Social History Social History Social History: She is single and lives at home with her 4 sons ages 17, 12, 3 and [id number]. 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 She smoked a half a pack of cigarettes per day for 12 years but switched to vaping cigarettes for the last several years. She last used vaping on the right before her oral surgery. She rarely drinks alcohol and only in small amounts. She does have a distant history of heroin abuse but quit using in 2017. Smoking packs per day: 0.5 Smoking cigarettes per day: 10.0 Years smoked: 10 Smoking pack-years: 5.00 Smoking status: Former smoker Tobacco type: cigarettes Smokeless tobacco user: other Smoking end date: 02/15/17 Additional smoking assessment comments: pt stopped vaping at time of oral surgery Alcohol intake: current Alcohol use details: VERY RARE Substance use: former Substance use type: does not use Last use: 2016 Living arrangements: with family Additional living arrangements comments: CHILDREN Occupation/Education: unemployed Gender identity (if verbalized by the patient): Female Spiritual care concerns: No Anes - Eval Final PreProcedure Day of Procedure 10/08/22 12:03 Patient weight: normal Heart: regular rate and rhythm Lungs: clear to auscultation and normal air movement Airway: Mallampati scale class II Neurological: alert and oriented Last oral intake: >/= 8 hours ASA classification: III Emergent: no Anesthetic plan: proceed Anesthesia type and monitoring: general ETT and standard monitoring Results Review: All pre-operative results and documents have been reviewed as part of the pre-operative evaluation. Informed Consent
[2022-10-09] VITALS (8 sets, daily range): BP systolic 104–119; BP diastolic 59–75; PULSE 50–61; RESP 15–20; TEMP 36.1–36.6; O2SAT 98–100
--- NOTE | 2022-10-09 06:34 | WPDHPUPDATE1 ---
History and Physical Update Update Date/Time: 10/09/22 06:34 History and Physical has been reviewed, including an updated exam of the patient. There are NO changes in the patient's condition. Risks, benefits, and alternatives have been discussed and questions answered. Patient agrees to proceed with procedure.
[2022-10-09] MEDS: LACTATED RINGERS 1,000 ML 30 ML IV CONT ×2 (12:00→13:59)
[2022-10-09] MEDS: ACETAMINOPHEN 500 MG TABLET 1000 MG PO (12:02)
[2022-10-09] MEDS: KETOROLAC 15 MG/ML VIAL (*BKC) IV PUSH (12:02)
--- NOTE | 2022-10-09 13:57 | P.OP_ITS ---
Procedure Note - Detailed Date of Procedure 10/09/22 Pre-op Diagnosis pelvic pain, left ovarian cyst, irr. bleeding Post-op Diagnosis Same (With endometriosis) Procedure Performed Laparoscopic destruction of endometriosis/destruction of left ovarian cyst/hysteroscopy/dilatation and curettage/Breanna ablation Surgeon hJ Ortiz MD Anesthesia General Indications This is a 37-year-old female status post tubal with left-sided pelvic pain and irregular excessive bleeding Findings Small left-sided ovarian cyst. Tubes status post tubal ligation. Retroverted enlarged uterus. Endometriosis along the cul-de-sac Description of Procedure The patient was prepped draped in the normal sterile fashion placed in the dorsal lithotomy position. Under excellent general endotracheal anesthesia weighted speculum placed in posterior fornix vagina. Anterior lip of the cervix grasped with single-tooth tenacula the Cesar's cannula was inserted to the cervix and attached to the single-tooth. This would be used later for uterine manipulation. After emptying the bladder clear urine the weighted speculum was removed and the gloves were changed. A supraumbilical incision made in the Veress needle passed in the abdomen. Abdomen filled with CO2 gas [id number]. The 5mm trocar advanced under direct visualization assuring no injury. Patient placed in Trendelenburg and a suprapubic incision made. The 5mm trocar advanced under direct visualization again the above findings were seen. Using point cautery the left ovarian cyst was drained in multiple areas of clear fluid. A small area of endometriosis was seen in the cul-de-sac and this was cauterized at 35 w per 2nd with monopolar cautery. No other abnormalities were seen. Irrigation undertaken the remainder the fluid removed and the gas removed from the abdomen. The trocars removed the incisions closed with 4 Monocryl glue. Attention was turned to the hysteroscopic portion. Uterus was noted to be retroverted and sounded to8.5cm. Serial dilatation with fragmented dilators performed followed by passage of the 5mm visualizing hysteroscope. Normal saline was used as visualizing medium. Thick irregular endometrial tissue was seen but not in each fallopian tube os could be seen however no abnormalities were noted. The uterus was then scraped over the entire 360? until a good grating sound was heard. The instruments were withdrawn and the Breanna instrument was placed in the uterus at the appropriate and burned for 120seconds. The instruments were withdrawn and this is his drug scope was reinserted into the uterus and an excellent burn noted and photo documentation undertaken. That instrument was removed and all instruments removed from the abdomen and pelvis. The patient was awakened and went to recovery in satisfacto ry condition. All sponge, needle, instrument counts were correct. There were no immediate complications Estimated Blood Loss 5 Drains No Packing No Pathology Yes Complications No immediate complications Condition Stable Disposition PACU
[2022-10-09] MEDS: fentaNYL CITRATE INJ (*CRX) 100 MCG/2 ML VIAL 25 MCG IV PUSH ×2 (14:17→14:20)
== END 2022-10-09 15:55 | disposition home or self-care (01) ==
PROVIDERS: Visit Provider Obstetrics & Gynecology
PROC: (CPT 49320; principal; 2022-10-09 13:15)
PROC: 0U5B8ZZ Destruction of Endometrium, Via Natural or Artificial Opening Endoscopic (ICD-10-PCS; CPT 58563; 2022-10-09 13:15)
DX: N87.9 Dysplasia of cervix uteri, unspecified (principal); N93.9 Abnormal uterine and vaginal bleeding, unspecified; N83.202 Unspecified ovarian cyst, left side; Z87.891 Personal history of nicotine dependence; Z98.84 Bariatric surgery status
CPT/HCPCS: 58662; 58563; 88305; A9270; J1100; J1170; J1885; J2250; J2405; J2704; J2710; J3010; J7120

== ENCOUNTER 2022-11-10 21:31 | Emergency (ER) | payer OTHER, SELFPAY ==
[2022-11-10 21:28] VITALS: BP 130/86; PULSE 68; RESP 15; TEMP 36.6; O2SAT 100
[2022-11-10 21:45] VITALS: RESP 16
--- NOTE | 2022-11-10 22:33 | ED.GENADULT ---
HPI - General Adult General Chief complaint: Overdose Stated complaint: overdose Time Seen by Provider: 11/10/22 21:36 History of Present Illness HPI narrative: Patient 37-year-old female who presents the emergency department with chief complaint of fentanyl overdose. Patient reports she has prior history of fentanyl abuse and reports that she relapsed today the patient reports that she has no suicidal or homicidal ideation reports that she received Narcan at home and started breathing again the patient currently has no complaints. Related Data Home Medications Medication Instructions Recorded Confirmed Lactobacillus 1 cap PO DAILY 10/06/22 10/06/22 acidophilus-Bifidobac.animalis 2.5 billion cell capsule (Daily Probiotic) multivitamin 1 tablet PO DAILY 10/06/22 10/06/22 Allergies Allergy/AdvReac Type Severity Reaction Status Date / Time tree nut Allergy Rash Verified 11/10/22 21:34 Review of Systems Review of Systems: A 10 system review of systems was completed on the patient and is negative except for what is stated in the HPI. Nursing and ancillary documentation was reviewed. [facility] Past Medical History Medical History Anxiety Asthma Bradycardia Depression Hepatitis C 2005 - no treatment needed Heroin abuse In remission since 2017 HINA (obstructive sleep apnea) Resolve since gastric sleeve and subsequent almost 100 lb weight loss Surgical History Surgical History Abdominal wall abscess I&D 12/2019 History of tubal ligation (03/12/20) Status post sleeve gastrectomy (07/2020) Family History Family History Father Sleep apnea Diabetes mellitus Hypertension Cerebrovascular accident Other Cancer Mother Hypertension Father Hypertension Cerebrovascular accident Family history of diabetes mellitus in first degree relative Grandparent Family history of malignant neoplasm Family history of malignant neoplasm of brain Mother Family history of colonic diverticulitis Social History Social History Social History: She is single and lives at home with her 4 sons ages 17, 12, 3 and [id number]. 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 She smoked a half a pack of cigarettes per day for 12 years but switched to vaping cigarettes for the last several years. She last used vaping on the 24th right before her oral surgery. She rarely drinks alcohol and only in small amounts. She does have a distant history of heroin abuse but quit using in 2017. Smoking packs per day: 0.5 Smoking cigarettes per day: 10.0 Years smoked: 10 Smoking pack-years: 5.00 Smoking status: Former smoker Tobacco type: cigarettes Smokeless tobacco user: other Smoking end date: 02/15/17 Additional smoking assessment comments: pt stopped vaping at time of oral surgery Alcohol intake: current Alcohol use details: VERY RARE Substance use: former Substance use type: does not use Last use: 2016 Living arrangements: with family Additional living arrangements comments: CHILDREN Occupation/Education: unemployed Gender identity (if verbalized by the patient): Female Spiritual care concerns: No Exam Narrative: GENERAL: Well-appearing, well-nourished, and in no acute distress. HEAD: Normocephalic, atraumatic. EYES: PERRLA and EOMI. ENT: Nares clear, no rhinorrhea or epistaxis. Mucous membranes moist. NECK: Supple. CHEST: Clear to auscultation. No respiratory distress. HEART: Regular rate and rhythm. No murmur heard. Normal peripheral pulses. ABDOMEN: Soft, nontender, nondistended, normal active bowel sounds. EXTREMITIES: Normal range of motion. No edema. SKIN: Warm, dry, no rash. NEURO: No focal deficits. A
[2022-11-10 23:34] VITALS: BP 102/64; PULSE 66; RESP 15; O2SAT 100
== END 2022-11-10 23:35 | disposition home or self-care (01) ==
PROVIDERS: Emergency Provider Emergency Medicine
DX: T40.411A Poisoning by fentanyl or fentanyl analogs, accidental (unintentional), initial encounter (principal); J45.909 Unspecified asthma, uncomplicated; B19.20 Unspecified viral hepatitis C without hepatic coma; Z98.84 Bariatric surgery status; Z87.891 Personal history of nicotine dependence
CPT/HCPCS: 99283

== ENCOUNTER 2023-10-25 09:16 | Outpatient (CLI) | payer OTHER, SELFPAY ==
[2023-10-25 09:54] LABS: Basophils Percent Auto 0.6 % (0.2-1.2); Eosinophils Absolute Auto 0.2 K/mm3 (0-0.3); Eosinophils Percent Auto 4.4 % (0-4.4); Hematocrit 41.7 % (37.0-47.0); Hemoglobin 13.5 g/dL (12.0-15.0); Immature Granulocyte Absolute 0.01 K/mm3 (0.00-0.031); Immature Granulocyte Percent A 0.2 % (0-0.5); Lymphocytes Absolute Auto 1.66 K/mm3 (0.9-3.2); Lymphocytes Percent Auto 34.9 % (18.3-44.2); Mean Corpuscular HGB Conc 32.4 g/dl (32-36); Mean Corpuscular Hemoglobin 27.1 pg (26-34); Mean Corpuscular Volume 83.7 fl (80-100); Mean Platelet Volume 9.6 fl (7.4-10.4); Monocytes Absolute Auto 0.3 K/mm3 (0.1-0.6); Monocytes Percent Auto 5.5 % (2.6-8.5); Neutrophils Absolute Auto 2.6 K/mm3 (1.3-6.7); Neutrophils Percent Auto 54.4 % (45.5-73.1); Platelet Count Result 186 k/mm3 (150-375); Red Blood Count 4.98 M/mm3 (4.2-5.4); Red Cell Distribution Width 14.5 % (11.5-14.5); White Blood Count 4.8 K/mm3 (4.5-10.0)
== END 2023-10-25 09:17 | disposition home or self-care (01) ==
PROVIDERS: Visit Provider Obstetrics & Gynecology
DX: Z01.818 Encounter for other preprocedural examination (principal); N93.9 Abnormal uterine and vaginal bleeding, unspecified
CPT/HCPCS: 36415; 85025; 86850; 86900; 86901

== ENCOUNTER 2023-10-29 00:54 | Day surgery (SDC) | payer OTHER, SELFPAY ==
[2023-10-19 15:50] VITALS: BMI 22.1
--- NOTE | 2023-10-19 15:51 | PC.NURSE ---
Report to the Outpatient Waiting Room, entrance under the green pavilion located off [facility], at time __11:30am on date _10-29-2023. Planned Procedure Time: _1:30pm .? Time changes happen often and if your time is changed the preop area will call you the afternoon before. - You and your visitor will be asked to self-screen and do not enter if you have any COVID symptoms. Please call surgeon if you need to reschedule. - A mask is optional within the hospital at this time. Patients may have clear liquids (water, carbonated beverages, clear teas, apple juice) until 3 hours prior to surgery with a maximum of 20 ounces. STOP LIQUIDS AT 10:30AM - No food from midnight until time of surgery and no smoking Take only the following medications with a SIP of water on the morning of surgery: N/A DO NOT STOP ANY OF YOUR OTHER PRESCRIPTION MEDICATIONS PRIOR TO SURGERY EXCEPT THE FOLLOWING Medications to discontinue per physician PLEASE DC YOUR MULTIVITAMIN AND PROBOTIC. Date to take last tqli [id number] Please no make-up, nail lithuanian, hairspray, perfume, deodorant, or body powder the day of surgery.? No jewelry (including any body piercings) or valuables the day of surgery, leave them at home.? Please take a shower or bath the night before, or the morning of, surgery with an antibacterial soap.? Wear comfortable, loose fitting clothing.? - Jewelry must be removed prior to entering the operating room.? Rings and piercings that are not removed may be cut off. - The hospital will not accept responsibility for valuables.? - Please leave all valuables, including medications, at home the day of surgery. If you are going home after surgery, a licensed tow car driver must drive you home.? - NO public transportation without another adult if you receive anesthesia. - We recommend that an adult stay with you for 24 hours following discharge. - We also recommend that you do not drive, make important decision, drink alcoholic beverages, or take any drugs that were not prescribed by your health care provider for at least 24 hours after your discharge time. Follow any additional instructions given to you from your surgeon. Telephone instructions given to ____ABHISHEK (patient) and asked if any additional questions and then verbalized understanding. Patient advised to call surgeon office or pre surgery nurse liaison [phone] if any additional questions.
--- NOTE | 2023-10-26 13:12 | PM.IMHP ---
H&P: HPI History of Present Illness Date/Time: 10/26/23 13:12 Chief Complaint: Pelvic pain with excessive heavy bleeding and left ovarian cyst Narrative: 38-year-old female admitted for robotic total vaginal hysterectomy and bilateral salpingectomy with left oophorectomy. She is status post 4 deliveries. She has an enlarged uterus pelvic pain dyspareunia and desires no more children. There is a moderate-sized left ovarian cyst which has caused her pain forever she will undergo the above-named procedure. Risks and benefits reviewed including but not exclusive of , aspiration pneumonia, bleeding, transfusion, perforation injury to bowel, bladder, ureters, or other internal organs with need for laparotomy. She received the ACOG handout entitled hysterectomy as well as the de Oniel handout. She had all questions answered. She asked to proceed PMFSH Past Medical History Medical History Anxiety Asthma Bradycardia Depression Hepatitis C 2005 - no treatment needed Heroin abuse In remission since 2016 HINA (obstructive sleep apnea) Resolve since gastric sleeve and subsequent almost 100 lb weight loss Surgical History Surgical History Abdominal wall abscess I&D 12/2019 History of tubal ligation (03/12/20) Status post sleeve gastrectomy (07/2020) Family History Family History Father Sleep apnea Diabetes mellitus Hypertension Cerebrovascular accident Other Cancer Mother Hypertension Father Hypertension Cerebrovascular accident Family history of diabetes mellitus in first degree relative Grandparent Family history of malignant neoplasm Family history of malignant neoplasm of brain Mother Family history of colonic diverticulitis Social History Social History Social History: She is single and lives at home with her 4 sons ages 17, 12, 3 and 35-[id number]. 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 She smoked a half a pack of cigarettes per day for 12 years but switched to vaping cigarettes for the last several years. She last used vaping on the right before her oral surgery. She rarely drinks alcohol and only in small amounts. She does have a distant history of heroin abuse but quit using in 2016. Smoking packs per day: 0.5 Smoking cigarettes per day: 10.0 Years smoked: 10 Smoking pack-years: 5.00 Smoking status: Former smoker Tobacco type: cigarettes and e-cigarettes/vaping Smokeless tobacco user: other Second hand tobacco smoke exposure: No Smoking end date: 02/15/17 Additional smoking assessment comments: pt stopped vaping at time of oral surgery Alcohol intake: current Alcohol use details: VERY RARE Substance use: former Substance use type: heroin Last use: 2016 Living arrangements: with family Additional living arrangements comments: CHILDREN Occupation/Education: unemployed Gender identity (if verbalized by the patient): Female Spiritual care concerns: No Meds Home Medications and Allergies Home Medications Medication Instructions Recorded Confirmed Type Lactobacillus 1 cap PO DAILY 10/06/22 10/19/23 History acidophilus-Bifidobac.animalis 2.5 billion cell capsule (Daily Probiotic) multivitamin 1 tablet PO DAILY 10/06/22 10/19/23 History naloxone 4 mg/actuation nasal 4 mg intranasal Q2M PRN opioid 11/10/22 10/19/23 Rx spray (Narcan) overdose #2 ea Allergies Allergy/AdvReac Type Severity Reaction Status Date / Time tree nut Allergy Rash Verified 10/19/23 15:46 fentanyl AdvReac Nausea Verified 10/19/23 15:17 Exam Const: General: cooperative, healthy appearing, comfortable and overweight Orientation/consciousness: oriented to person, oriented to place and oriented to ti
[2023-10-29] VITALS (12 sets, daily range): BP systolic 104–147; BP diastolic 58–81; PULSE 53–94; RESP 15–18; TEMP 35.7–37.2; O2SAT 98–100
--- NOTE | ~2023-10-29 | XR_ITS ---
EXAMINATION: XR fluoroscopy no charge DATE: 10/29/2023 15:34 INDICATION: Lost needle TECHNIQUE: Single fluoroscopic image of a portion of the left pelvis was obtained during procedure pe rformed by Dr. Roby Ortiz. Radiologist was not present for the imaging or procedure. The amount of fl uoroscopy time used during this procedure was 0.4 minutes. COMPARISON: None. FINDINGS/IMPRESSION: A curved needle is seen projecting over the left iliac wing. Reviewed, dictated and finalized at location B.
--- NOTE | 2023-10-29 07:15 | WPDHPUPDATE1 ---
History and Physical Update Update Date/Time: 10/29/23 07:15 History and Physical has been reviewed, including an updated exam of the patient. There are NO changes in the patient's condition. Risks, benefits, and alternatives have been discussed and questions answered. Patient agrees to proceed with procedure.
[2023-10-29] MEDS: LACTATED RINGERS 1,000 ML 30 ML IV CONT ×3 (12:25→16:16)
[2023-10-29] MEDS: ACETAMINOPHEN 500 MG TABLET 1000 MG PO (12:27)
[2023-10-29] MEDS: KETOROLAC 15 MG/ML VIAL (*BKC) IV PUSH (12:27)
[2023-10-29 12:38] LABS: BEDSIDEPREGUCG Negative (Negative)
--- NOTE | 2023-10-29 13:07 | WPDANESEPPF ---
Anes - Initial Pre Proc Eval Procedure: Operation Date: 10/29/23 13:30 Proposed Procedures p Robotic Assisted Total Vaginal Hysterectomy, Bilateral Salpingectomy, Left Oophorectomy - Jh Ortiz MD Date/Time: 10/29/23 13:07 Surgeon: Jh Ortiz MD Pre Op Diagnosis: pelvic pain, left ovarian cyst, heavy bleeding Patient Data Age: 38 Gender: F Height: 1.8 m Weight: 74.6 kg Last Vital Signs Temp 37.2 C 10/29/23 12:30 Pulse 60 10/29/23 12:30 Resp 18 10/29/23 12:30 BP 119/62 10/29/23 12:30 Pulse Ox 100 10/29/23 12:30 O2 Del Method Room Air 10/29/23 12:30 Allergies Allergy/AdvReac Type Severity Reaction Status Date / Time tree nut Allergy Rash Verified 10/29/23 12:29 fentanyl AdvReac Nausea Verified 10/29/23 12:29 Home Medications Medication Instructions Recorded Confirmed Type Lactobacillus 1 cap PO DAILY 10/06/22 10/29/23 History acidophilus-Bifidobac.animalis 2.5 billion cell capsule (Daily Probiotic) multivitamin 1 tablet PO DAILY 10/06/22 10/29/23 History naloxone 4 mg/actuation nasal 4 mg intranasal Q2M PRN opioid 11/10/22 10/29/23 Rx spray (Narcan) overdose #2 ea hydrocodone 5 mg-acetaminophen 300 1 tablet PO Q4H PRN pain #20 tabs 10/29/23 Rx mg tablet Laboratory Tests 10/29/23 12:30 POC Urine HCG, Qual Negative (Negative) Patient hx anesthesia problems: post op nausea/vomiting Family hx anesthesia problems: none Results Review: All pre-operative results and documents have been reviewed as part of the pre-operative evaluation. [facility] Past Medical History Medical History Anxiety Asthma Bradycardia Depression Hepatitis C 2005 - no treatment needed Heroin abuse In remission since 2016 HINA (obstructive sleep apnea) Resolve since gastric sleeve and subsequent almost 100 lb weight loss Surgical History Surgical History Abdominal wall abscess I&D 12/2019 History of tubal ligation (03/12/20) Status post sleeve gastrectomy (07/2020) Family History Family History Father Sleep apnea Diabetes mellitus Hypertension Cerebrovascular accident Other Cancer Mother Hypertension Father Hypertension Cerebrovascular accident Family history of diabetes mellitus in first degree relative Grandparent Family history of malignant neoplasm Family history of malignant neoplasm of brain Mother Family history of colonic diverticulitis Social History Social History Social History: She is single and lives at home with her 4 sons ages 17, 12, 3 and [id number]. 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 She smoked a half a pack of cigarettes per day for 12 years but switched to vaping cigarettes for the last several years. She last used vaping on the right before her oral surgery. She rarely drinks alcohol and only in small amounts. She does have a distant history of heroin abuse but quit using in 2016. Smoking packs per day: 0.5 Smoking cigarettes per day: 10.0 Years smoked: 10 Smoking pack-years: 5.00 Smoking status: Former smoker Tobacco type: cigarettes and e-cigarettes/vaping Smokeless tobacco user: other Second hand tobacco smoke exposure: No Smoking end date: 02/15/17 Additional smoking assessment comments: pt stopped vaping at time of oral surgery Alcohol intake: current Alcohol use details: VERY RARE Substance use: former Substance use type: heroin Last use: 2016 Living arrangements: with family Additional living arrangements comments: CHILDREN Occupation/Education: unemployed Gender identity (if verbalized by the patient): Female Spiritual care concerns: No Anes - Eval Final PreProcedure Day of Proce
[2023-10-29] MEDS: SCOPOLAMINE 1 MG PATCH 1 PATCH TRANSDERM (13:48)
[2023-10-29] MEDS: ceFAZolin 2 GM/D5W 50 ML 2 GM/50 ML BAG IVPB (13:49)
--- NOTE | 2023-10-29 15:46 | W.PM.PROC2 ---
Procedure Note - Detailed Date of Procedure 10/29/23 Pre-op Diagnosis pelvic pain, left ovarian cyst, heavy bleeding Post-op Diagnosis Same Procedure Performed Robotic total vaginal hysterectomy bilateral salpingectomy with left oophorectomy Surgeon Jh Ortiz MD Anesthesia General Indications 38-year-old female with heavy bleeding enlarged uterus complex left ovarian cyst Findings large uterus complex left ovarian cyst normal-appearing right ovary Description of Procedure the patient was prepped and draped in the normal sterile fashion placed in the dorsal lithotomy position. Excellent general endotracheal anesthesia weighted speculum placed in posterior fornix of anterior lip of the cervix grasped with a single-tooth tenaculum. Uterus sounded to 8cm. Serial dilatation fragmented dilators performed followed by passage of the 8. BLU and the 3. Cold cup. Next the 16 Upper Sorbian catheter was placed in the bladder to drain clear urine. Weighted speculum and the single-tooth removed. Gloves were changed. A supraumbilical incision made the Veress needle passed in the abdomen. Abdomen was filled with CO2 gas [id number]. The 8mm trocar advanced in the abdomen. Downside visualized and no injury seen. Patient placed in Trendelenburg and right left lateral quadrant incisions made. The 8mm trocar was advanced under direct visualization right upper quadrant. Robot was docked. Attention was turned to the console. The left lung round ligament was grasped, burned, cut. Anteriorly a bladder flap was formed by sharply dissecting peritoneum and retracting the bladder caudally away from the cervix uterus to the opposite round ligament which was clamped, burned, cut. Next the left infundibulopelvic structure was skeletonized clamping burning and cutting and bringing this to the previous level of previous right round ligament. On the opposite side the fallopian tube was sharply dissected away from the ovarian complex and brought to the level of the uterine origin. The ovary was spared by clamping burning and cutting the utero-ovarian ligament and bringing this to the previously cut round ligament. The cardinal broad ligaments on the left were skeletonized clamping burning cutting and bringing this down to the level of the uterine vessels these were large and tortuous and individually clamped, burned, cut. In similar fashion on the right the cardinal broad ligaments were serially skeletonized clamping burning cutting and hugging the cervix and uterus until the uterine vessels could be seen on the right these were individually clamped, burned, cut. A colpotomy incision was made in the uterus cervix left ovary and bilateral tubes removed through the vagina. At that point the vagina was to be closed and the sweat edge off the needle broke. The needle was searched for and after this short time of searching the C-arm was brought and and it was found to be in the left lower quadrant this was removed without difficulty. The procedure was then continued and the vagina closed with continuous running 0V lock from lateral edge to lateral edge back to the midline. Irrigation subcutaneous layer and the skin. The robot was undocked and gas removed from the abdomen. The trocars removed and the incisions closed with 4-0 Monocryl and glue. The patient was awakened went to recovery in satisfactory condition. All sponge, needle, instrument counts were correct. There were no immediate complications Estimated Blood Loss 25 Drains No Packing No Pathology Yes Complications No immediate complications Condition Stable Disposition PACU
--- NOTE | 2023-10-29 15:52 | PM.DS ---
DS: Admitting Diagnosis Discharge Date 10/30/2023 Admitting Diagnosis pelvic pain complex left cyst DS: Discharge Diagnosis Discharge Diagnosis (1) Pelvic pain: Code(s): R10.2 - Pelvic and perineal pain Status: Acute (2) Excessive vaginal bleeding: Code(s): N93.9 - Abnormal uterine and vaginal bleeding, unspecified Status: Acute (3) Left ovarian cyst: Code(s): N83.202 - Unspecified ovarian cyst, left side Status: Acute DS: Summary Hospital Course Reason for hospitalization: patient was admitted on 1323 for laparoscopic robotic [place] directed total vaginal hysterectomy bilateral salpingectomy and left oophorectomy. Hospital Course: The patient's hospital course unremarkable. She remained afebrile. She was up, voiding without difficulty, eating regular ambulating and generally without complaints. Time Spent with Patient Time attestation: Total time spent providing and/or coordinating discharge services: Exam Const: General: cooperative, healthy appearing and comfortable Nutritional Appearance: average body habitus Orientation/consciousness: oriented to person, oriented to place and oriented to time HENMT: Head: normal to inspection Resp: Effort & Inspection: normal respiratory effort Cardio: Rate: regular rate Rhythm: regular rhythm Heart sounds: S1 normal heart sound present and S2 normal heart sound present GI: Inspection: normal to inspection and incision ( Wounds are clean dry and intact) DS: Data Data Completed and Pending Pending studies at discharge: Pending at discharge 10/29/23 15:42 Surgical [PTH] Routine Labs on day of discharge: Labs from last 24 hours 10/29/23 12:30 POC Urine HCG, Qual Negative Discharge Plan Discharge Patient Disposition: Home, Self-Care Discharge Instructions: Remove the Scopolamine patch that was placed behind your ear in 72 hours or less. Wash your hands after touching. Stand Alone Forms: General Discharge Instructions Follow-up/Referrals: Jh Simmons MD [Physician] - Discharge Medications: New hydrocodone-acetaminophen 5-300 mg tablet 1 tablet PO Q4H PRN (Reason: pain) Qty: 20 0RF No Action multivitamin Tablet 1 tablet PO DAILY Daily Probiotic 2.5 billion cell Capsule 1 cap PO DAILY naloxone [Narcan] 4 mg/actuation spray,non-aerosol 4 mg intranasal Q2M PRN (Reason: opioid overdose) Qty: 2 0RF Rx Instructions: spray 1 dose into ONE nostril; alternate nostrils w each dose until help arrives
[2023-10-29] MEDS: HYDROmorphone HCL INJ (*CRX) 1 MG/ML SYR 0.25 MG IV PUSH ×5 (16:35→17:16)
[2023-10-29] MEDS: ONDANSETRON INJ 4 MG/2 ML VIAL IV PUSH (17:08)
--- NOTE | 2023-10-29 17:30 | PC.NURSE ---
This patient, Heather Garcia, was admitted to -. Patient/family oriented to hospital policies and general routines including ID bracelet, bed and alarms, visiting hours, pain management, procedures, bathroom and other care routines, personal items, smoking policy, room service/diet, and visiting hours. Information on how to activate the Rapid Response Team has been discussed. Patient/Family are encouraged to report perceived risks to care and to ask questions if they do not understand what they are told or what they should do.
[2023-10-29] MEDS: SIMETHICONE 80 MG TAB.CHEW PO (18:23)
[2023-10-29] MEDS: DOCUSATE SODIUM 100 MG CAPSULE PO (18:23)
[2023-10-29] MEDS: HYDROcodone/acetaminophen (*CRX) 10-325 MG TABLET 1 TAB PO (19:28)
[2023-10-29 20:35] LABS: Glucose Point of Care 190 mg/dl (65-105)
[2023-10-30] MEDS: HYDROcodone/acetaminophen (*CRX) 10-325 MG TABLET 1 TAB PO (01:31)
[2023-10-30 02:26] VITALS: BP 110/71; PULSE 81; RESP 18; TEMP 37; O2SAT 99
[2023-10-30] MEDS: IBUPROFEN 600 MG TABLET PO (05:44)
[2023-10-30 05:48] LABS: Basophils Percent Auto 0.2 % (0.2-1.2); Eosinophils Percent Auto 0.3 % (0-4.4); Hematocrit 38.4 % (37.0-47.0); Hemoglobin 12.5 g/dL (12.0-15.0); Immature Granulocyte Absolute 0.02 K/mm3 (0.00-0.031); Immature Granulocyte Percent A 0.2 % (0-0.5); Lymphocytes Absolute Auto 1.24 K/mm3 (0.9-3.2); Lymphocytes Percent Auto 14.3 % (18.3-44.2); Mean Corpuscular HGB Conc 32.6 g/dl (32-36); Mean Corpuscular Volume 82.9 fl (80-100); Mean Platelet Volume 9.1 fl (7.4-10.4); Monocytes Absolute Auto 0.4 K/mm3 (0.1-0.6); Monocytes Percent Auto 4.7 % (2.6-8.5); Neutrophils Percent Auto 80.3 % (45.5-73.1); Platelet Count Result 210 k/mm3 (150-375); Red Blood Count 4.63 M/mm3 (4.2-5.4); Red Cell Distribution Width 14.1 % (11.5-14.5); White Blood Count 8.7 K/mm3 (4.5-10.0)
[2023-10-30] MEDS: SIMETHICONE 80 MG TAB.CHEW PO (05:55)
[2023-10-30 06:51] VITALS: BP 101/52; PULSE 49; RESP 20; TEMP 36.9; O2SAT 100
[2023-10-30 07:11] VITALS: BP 95/54; PULSE 58; RESP 16; TEMP 36.9; O2SAT 100
--- NOTE | 2023-10-30 07:43 | PM.GYNPNOP ---
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 Postoperative Procedures: Procedures Operation Date: 10/29/23 13:30 Actual Procedure Side Surgeon p Robotic Assisted Total Vaginal Hysterectomy, Bilateral Salpingectomy, Left Oophorectomy Jh Ortiz MD Postoperative day: 1 Postoperative status: doing well Postoperative plan: routine post-op care, see orders, ambulate, advance diet, voiding trials, discharge and other (follow up 2 weeks) Time Spent With Patient Time: Total time spent is greater than 50% in coordination of care (as documented) at patient's floor/unit and/or counseling patient: Time with patient: less than 15 minutes STACKER OPERATOR- PN:Subj Post-Op Subjective Date/time seen: 10/30/23 07:43 Subjective: patient reports feeling better, patient has no complaints, patient desires discharge, pain is well controlled and patient is tolerating oral intake Exam Const: General: cooperative, healthy appearing and comfortable Nutritional Appearance: average body habitus Orientation/consciousness: oriented to person, oriented to place and oriented to time Resp: Effort & Inspection: normal respiratory effort Cardio: Rate: regular rate Rhythm: regular rhythm Heart sounds: S1 normal heart sound present and S2 normal heart sound present GI: Inspection: normal to inspection and incision (wounds look good) STACKER OPERATOR - PN: Obj Data Vital Signs Vital Signs: Vital Signs - 24 hr 10/29/23 12:30 10/29/23 16:02 10/29/23 16:15 Temperature 98.9 F 97.0 F L Pulse Rate 60 54 L 55 L Respiratory Rate 18 16 16 Blood Pressure 119/62 126/65 125/70 Pulse Oximetry 100 100 100 Oxygen Delivery Room Air Simple Face Mask Simple Face Mask Oxygen Flow Rate 8 8 10/29/23 16:30 10/29/23 16:45 10/29/23 17:00 Temperature Pulse Rate 67 62 54 L Respiratory Rate 15 18 16 Blood Pressure 135/68 133/77 147/81 H Pulse Oximetry 100 100 100 Oxygen Delivery Room Air Room Air Room Air Oxygen Flow Rate 10/29/23 17:15 10/29/23 17:26 10/29/23 17:41 Temperature 96.3 F L 96.8 F L Pulse Rate 53 L 94 94 Respiratory Rate 16 18 18 Blood Pressure 129/74 126/77 128/78 Pulse Oximetry 100 98 100 Oxygen Delivery Room Air Oxygen Flow Rate 10/29/23 18:11 10/29/23 19:11 10/29/23 23:11 Temperature 96.7 F L 96.7 F L 98.6 F Pulse Rate 94 80 93 Respiratory Rate 18 17 18 Blood Pressure 127/69 114/58 L 104/71 Pulse Oximetry 100 100 100 Oxygen Delivery Oxygen Flow Rate 10/30/23 02:26 10/30/23 06:51 Temperature 98.6 F 98.4 F Pulse Rate 81 49 L Respiratory Rate 18 20 Blood Pressure 110/71 101/52 L Pulse Oximetry 99 100 Oxygen Delivery Oxygen Flow Rate Intake/Output Intake/Output: Intake & Output 10/27/23 10/28/23 10/29/23 10/30/23 23:59 23:59 23:59 23:59 Intake Total 850 Output Total 350 1350 Balance 500 -1350 Meds/Results Medications: Active Medications Generic Name Dose Route Start Last Admin Trade Name Freq PRN Reason Stop Dose Admin Hydrocodone Bitart/Acetaminophen 1 tab 10/29/23 17:26 Hydrocodone/Acetaminophen (*Crx) 5-325 Mg Tablet PO Q3H PRN Pain Rated 5 or Less Hydrocodone Bitart/Acetaminophen 1 tab 10/29/23 17:26 10/30/23 01:31 Hydrocodone/Acetaminophen (*Crx) 10-325 Mg Tablet PO 1 tab Q3H PRN Administration Pain Rated 6 or Greater Docusate Sodium 100 mg 10/29/23 17:26 10/29/23 18:23 Docusate Sodium 100 Mg Capsule PO 100 mg BID SAE Administration Enoxaparin Sodium 40 mg 10/30/23 09:00 Enoxaparin 40 Mg/0.4 Ml Syringe SUB-Q DAILY SAE Ibuprofen 600 mg 10/29/23 17:26 10/30/23 05:44 Ibuprofen 600 Mg Tablet PO 600 mg Q6H PRN Administration Cramping Ketorolac Tromethamine 30 mg 10/29/23 17:26 Ketorolac 30 Mg/Ml Vial (*Bkc) IV PUSH 11/03/23 17:25 Q6H PRN Pain Rated 4-6 Naloxone HCl 0.1 mg 10/29/23 17:26 Naloxone Hcl 0.4 Mg/Ml Vial IV PUSH Q2M PRN Respiratory rate less than 10 Ondansetron HCl 4 mg 10/29/23 17:26 Ondan
[2023-10-30] MEDS: DOCUSATE SODIUM 100 MG CAPSULE PO (07:57)
[2023-10-30] MEDS: ENOXAPARIN 40 MG/0.4 ML SYRINGE SUB-Q (07:57)
== END 2023-10-30 09:40 | disposition home or self-care (01) ==
LOC: ANHSURGERY 13:49 → ANH3MED 17:34
PROVIDERS: Visit Provider Obstetrics & Gynecology
PROC: (CPT 58552; principal; 2023-10-29 13:30)
DX: N83.202 Unspecified ovarian cyst, left side (principal); N80.03 Adenomyosis of the uterus; N80.00 Endometriosis of the uterus, unspecified; N93.9 Abnormal uterine and vaginal bleeding, unspecified; G47.33 Obstructive sleep apnea (adult) (pediatric); Z86.19 Personal history of other infectious and parasitic diseases; Z98.84 Bariatric surgery status; Z87.891 Personal history of nicotine dependence; Z79.899 Other long term (current) drug therapy
CPT/HCPCS: 58552; S2900; 36415; 82948; 85025; 88307; 99199; A9270; J0690; J1100; J1170; J1650; J1885; J2250; J2405; J2704; J7030; J7120